=== PATIENT | female | born 1980 | race Caucasian/White ===

== ENCOUNTER 2016-08-10 14:02 | Emergency (ER) | payer BC ==
[~2016-08-10] VITALS: Ht 172.7 cm; Wt 94.9 kg
[~2016-08-10 14:02] MED LIST: BUSP1TAB46 PO; CETI10TA10 PO; CIPR-255 PO; LAMO200T38 PO; NORGTAB52 PO; RANI150T2 PO; SPIR50TA3 PO; TPM100 PO
[2016-08-10 14:04] VITALS: TEMP 37.1; Ht 172.7 cm; Wt 94.9 kg
--- NOTE | 2016-08-10 14:58 | DIAGNOSTIC IMAGING REPORT ---
RIGHT FOOT MIN 3 VIEWS ROUTINE CLINICAL HISTORY: right foot pain Right COMPARISON: None. DISCUSSION: The bones and joint spaces appear intact. There is no evidence of fracture, dislocation or bony disease. There is no evidence for soft tissue swelling. IMPRESSION: Negative study. Electronically signed by: Korey Tinajero M.D. 08/10/2016 2:57 PM Dictated Date/Time: 08/10/2016 2:56 PM
[2016-08-10] MEDS ORDERED: IBUPROFEN 600 MG TAB PO STA (15:13)
--- NOTE | 2016-08-10 15:20 | EMERGENCY ROOM VISIT NOTE ---
ED Visit Note First contact with patient: 14:12 CHIEF COMPLAINT: Foot pain HISTORY OF PRESENT ILLNESS: This 36-year-old female patient presents to the emergency department ambulatory complaining of swelling and pain in the right foot at rest and worse with weight bearing. The patient states her symptoms started a week ago and worse yesterday. The patient rates the pain as sharp and 7/10. The patient has no relief of the pain. The patient is barely able to walk. No numbness or weakness. No ankle pain. There are no lacerations of the foot. The patient is able to move all of their toes and their ankle without pain. Patient denies previous injury to this foot. REVIEW OF SYSTEMS: GENERAL: A 6 system review of systems was completed with positives and pertinent negatives in the HPI. ALLERGIES: Sulfa MEDICATIONS: See nursing notes PMH: []Bipolar, migraines, GERD SOCIAL HISTORY: The patient is employed. She does not smoke PHYSICAL EXAM: Vital Signs: Reviewed Nurse's notes, vital signs stable. GENERAL : This is a 36-year-old female, in no acute distress, but appears in pain, well- developed, well-nourished. MUSCULOSKELETAL: There is no visual deformity of the right foot. There is no erythema or ecchymosis. There is no warmth. There is tenderness and swelling over the medial aspect at the arch of the right foot. The range of motion of the foot is minimally limited secondary to pain. There is no tenderness over the plantar fascia. Dorsi flexion 4/5 and Plantar flexion 4/5. The skin is intact and there are no lacerations or puncture wounds. Dorsalis pedis pulse 2+. Capillary refill less than 2 seconds. EMERGENCY DEPARTMENT COURSE: I examined the patient. An X-ray of the right foot was reviewed by myself and radiology and reveals no fracture or dislocation. The patient was placed in a post-op shoe and instructed on the use of crutches. She was given 600 mg oral ibuprofen. She declined any stronger pain medication. She does not have any erythema, warmth, fever, lymphangitic streaking to suggest infectious process. She does not have any calf pain or palpable cord to suggest DVT. This may be an overuse injury. She should rest and elevate the leg. She should contact orthopedics to schedule a follow-up appointment for further evaluation and management. She should return with worsening symptoms. The patient was discharged home in good condition. RIGHT FOOT MIN 3 VIEWS ROUTINE CLINICAL HISTORY: right foot pain Right COMPARISON: None. DISCUSSION: The bones and joint spaces appear intact. There is no evidence of fracture, dislocation or bony disease. There is no evidence for soft tissue swelling. IMPRESSION: Negative study. Problem List Medical Problems: (1) Bipolar disorder Status: Chronic Surgical Problems: (1) Hx of cholecystectomy Status: Resolved (2) Hx of hemorrhoidectomy Status: Resolved (3) S/P nasal septoplasty Status: Resolved Current/Historical Medications Scheduled Cetirizine Hcl (Zyrtec), 10 MG PO HS Lamotrigine (Lamictal), 200 MG PO BID Norgestimate-Ethinyl Estradiol (Tri-Previfem), 1 TAB PO QAM Ranitidine HCl (Ranitidine HCl), 150 MG PO BID Spironolactone (Aldactone), 50 MG PO QAM Topiramate (Topiramate), 200 MG PO HS Allergies Coded Allergies: Sulfa Drugs (Verified Allergy, Unknown, 08/10/16) Vital Signs Date Time Temp Pulse Resp B/P Pulse Ox O2 Delivery O2 Flow Rate FiO2 08/10/16 15:51 89 20 146/83 98 08/10/16 14:04 37.1 91 18 145/105 96 Room Air Medications Administered Medications (Trade) Dose Ordered Sig/Benjamin Route Start Time Stop Time Status Last Admin Dose Admin Ibuprofen (Motrin Tab) 600 mg NOW STAT PO 08/10/16 15:13 08/10/16 15:15 DC 08/10/16 15:47 600 MG Departure Information Impression Primary Impression: Foot sprain Dispostion Home / Self-Care Condition GOOD Referrals Rica Knight M.D. (PCP) Александр Dickinson M.D. Patient Instructions ED Sprain Foot, [facility] Additional Instructions Ibuprofen 600 mg every 6-8 hours or moderate pain Ice frequently over the next 24-48 hours Wear the postop shoe when up and about with crutches with weightbearing as tolerated Contact orthopedics to schedule a follow-up appointment Return with any worsening symptoms Work Instructions Return To Work: 3 days
[2016-08-10 15:51] VITALS: BP 146/83; PULSE 89; O2SAT 98
== END 2016-08-10 15:52 | disposition home or self-care (01) ==
LOC: C.EDB 14:03 → C.EDD 15:52
DX: S93.601A Unspecified sprain of right foot, initial encounter (principal); X58.XXXA Exposure to other specified factors, initial encounter; F31.9 Bipolar disorder, unspecified; K21.9 Gastro-esophageal reflux disease without esophagitis; Z90.49 Acquired absence of other specified parts of digestive tract; Z79.899 Other long term (current) drug therapy

== ENCOUNTER 2021-03-03 14:53 | Inpatient (IN) ==
[2021-03-03] MEDS ORDERED: ONDANSETRON INJ 2 MG/ML 2 ML VIAL IV STA ×2 (16:21→17:57)
[2021-03-03] MEDS ORDERED: SODIUM CHLORIDE 0.9% 1000ML 1,000 ML IV ONE (16:21)
[2021-03-03] MEDS ORDERED: KETOROLAC 30 MG/ML VIAL IV STA (16:21)
--- NOTE | 2021-03-03 16:24 | Emergency Department Note ---
Impression & Plan Epiploic appendagitis ED Provider Note Name: TANYA TENORIO Age: 41 Sex: F Arrives Via: Walk-In Informant: Patient ED Provider: Steven Calabrese MD Chief Complaint: abdominal pain Impression: Epiploic Appendagitis Medical Decision Making: Very pleasant [facility] [employer] with history Bipolar, Gerd, IBS, Migraines arrives with acute Left lower abdominal pain no consistent with previous renal colic. She is uncomfortable though initially declines pain medications, though agreed to Toradol. With acuity and location felt CT a/p without contract for stone eval reasonable initially. Labs with mild wbc elevation. CT with diverticulitis vs appendagitis. Worsening pain while here thus IV morphine and will start abx in case this is diverticulitis. Continued worsening of pain and thus dilaudid given and still quite uncomfortable. With continued pain felt that repeat imaging but with IV contrast indicated. CT confirms this appears to be appendagitis. There is mild appendix dilation, though no RLQ TTP thus I do not feel this is appendicitis. Given persistent pain will bring in for pain control and gen surg consulted who agree with monitoring, and advise continued abx management. Triage/Nursing Notes reviewed by Me Differentials:Appendicitis, ovarian cyst, ovarian torsion, ectopic , TOA, PID, infections, diverticulitis, UTI, obstruction, mesenteric ischemia, aortic pathology, inflammatory bowel disease, renal colic, PUD, pancreatitis, biliary pathology, hernia, volvulus, constipation, as well as other pathologies. Vital Signs: reviewed and remarkable for no significant abnormalities Interventions: See Below Labs:Reviewed and remarkable for mild wbc elevation Imaging:See Below Consults:Arcenio Lugo PA-C and Dr Wilkins of Gen Surg Dr Rose Mary Cox Hospitalist Plan: Disposition:Hospitalization Condition: Good History of Present Illness:41 yr old female arrives for evaluation of left abdominal pain. Notes she awoke this morning with left abdominal pain. Stabbing and comes in waves. Associated nausea and lack of appetite. No vomiting, fevers, chills, blood in stool, urinary symptoms, leg swelling, rashes, back pain, chest pain, sob, syncope, nor other symptoms. No history of similar though does have renal colic history. No trauma, falls, injuries. no medications prior to arrival. nothing makes better, movement makes worse. ROS: See above HPI for pertinent positives & negatives. A total of 10 systems reviewed and were otherwise negative. Past Medical History:See Below Past Surgical History:See Below Family History:See Below Social History:See Below Home Medications:See Below Allergies:[place] Vitals:Blood Pressure: 140/76, Pulse 87, RR 18, T 36.6C, O2 98% on RA Physical Exam: GENERAL: Patient is very uncomfortable appearing and in moderate distress. EYES: No scleral icterus, unremarkable pupils. ENT: Mucous membranes moist, no nasal congestion. NECK: No masses appreciated, nomeningismus, trachea is midline. RESPIRATORY: No dyspnea. Clear to auscultation and equal bilaterally. No wheeze, no rhonchi. CARDIOVASCULAR: Regular rate and rhythm.No murmurs, rubs, gallops appreciated. GASTROINTESTINAL: TTP left lower quadrant. Otherwise abdomen soft, non-tender, no peritonitis.Bowel sounds positive.No masses appreciated. BACK: No midline tenderness, no CVA tenderness EXTREMITIES: Normal motion all extremities, no cyanosis, no edema. NEUROLOGIC: Alert and oriented, no acute motor or sensory deficits, no focal weakness, cranial nerves grossly intact. SKIN: No rash, no jaundice, no diaphoresis. PSYCH: Appropriate GCS: 15 ED Course: Times/Reassessments: continued pain though manageable with iv narcotics Steven Calabrese MD Past Med/Surg History Medical History Bipolar disorder GERD (gastroesophageal reflux disease) Headache, migraine IBS (irritable bowel syndrome) Surgical History Hx of cholecystectomy Hx of hemorrhoidectomy Family History Other Diabetes Heart disease Hypertension Social History Smoking Status: Never smoker Smoking End Date: 2009; Second Hand Exposure: No; Do You Dip or Chew Tobacco: No; Tobacco Cessation Education Requested by Patient: No Hx Alcohol Use: No Hx Substance Use: No Preferred Language: Yoruba Communication Ability: Effective 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 Offbearer Required: No Beliefs That Will Affect Care: None Current Living Situation: Alone Other Information That Helps Us Care for You: No Feels Safe at Home: Yes Safety Concerns: Feels Safe At This Time Assistive Devices: Glasses Allergies Allergies Allergy/AdvReac Type Severity Reaction Status Date / Time Sulfa (Sulfonamide Allergy Unknown Hives/Rash Verified 03/03/21 15:53 Antibiotics) Home Meds Home Medications Medication Instructions Recorded Confirmed cetirizine 10 mg tablet 10 mg PO HS PRN 07/03/19 03/03/21 desogestrel 0.15 mg-ethinyl 1 tab PO DAILY 07/03/19 03/03/21 estradiol 0.03 mg tablet (Apri) lamotrigine 200 mg tablet 200 mg PO BID 07/03/19 03/03/21 topiramate 200 mg tablet 200 mg PO HS 07/03/19 03/03/21 fluoxetine 10 mg capsule 10 mg PO DAILY 03/03/21 03/03/21 fluoxetine 20 mg capsule 20 mg PO DAILY 03/03/21 03/03/21 galcanezumab-gnlm 120 mg/mL 120 mg SUBCUT MONTHLY 03/03/21 03/03/21 subcutaneous pen injector (Emgality Pen) zolmitriptan 5 mg tablet 5 mg PO UD PRN MDD 2 tabs 03/03/21 03/03/21 Results & Data (ED) Vital Signs Vital Signs - 24 hr 03/03/21 15:01 03/03/21 17:31 03/03/21 18:00 Temperature 36.6 C Temperature Source Temporal Artery Scan Pulse Rate 87 75 67 Pulse Rate from SpO2 Sensor 74 66 Respiratory Rate 18 18 13 Respiratory Effort / Characteristics Non-Labored Respiratory Depth Normal Blood Pressure 140/76 156/126 H 159/104 H Blood Pressure Mean 97 136 122 Pulse Oximetry 98 100 99 Oxygen Delivery Method Room Air Room Air Sepsis Recent Fever Within 48 Hours No Sepsis New/Unexplained Change in Mental Status No Sepsis Action Taken by Nursing No Action Required 03/03/21 18:30 03/03/21 19:44 03/03/21 20:00 Temperature Temperature Source Pulse Rate 65 76 Pulse Rate from SpO2 Sensor 65 77 76 Respiratory Rate 11 L 17 Respiratory Effort / Characteristics Respiratory Depth Blood Pressure 169/121 H 135/91 Blood Pressure Mean 137 105 Pulse Oximetry 100 99 99 Oxygen Delivery Method Room Air Room Air Sepsis Recent Fever Within 48 Hours Sepsis New/Unexplained Change in Mental Status Sepsis Action Taken by Nursing 03/03/21 20:30 03/03/21 21:00 03/03/21 21:30 Temperature Temperature Source Pulse Rate 80 66 66 Pulse Rate from SpO2 Sensor 78 66 66 Respiratory Rate 14 16 14 Respiratory Effort / Characteristics Respiratory Depth Blood Pressure 141/84 H 124/81 139/80 Blood Pressure Mean 103 95 99 Pulse Oximetry 98 97 98 Oxygen Delivery Method Sepsis Recent Fever Within 48 Hours Sepsis New/Unexplained Change in Mental Status Sepsis Action Taken by Nursing Laboratory Data Result diagrams: 03/04/21 05:40 03/04/21 05:40 Lab Results 03/03/21 03/03/21 03/03/21 Range/Units 17:20 17:30 19:28 WBC 12.21 H (4.8-10.8) K/uL RBC 4.59 (4.2-5.4) M/uL Hgb 12.9 (12.0-16.0) g/dL Hct 39.5 (37-47) % MCV 86.1 (80-100) fL MCH 28.1 (25-34) pg MCHC 32.7 (32-36) g/dL RDW Std Deviation 48.0 H (36.4-46.3) fL RDW Coeff of Daniel 15.5 H (11.5-14.5) % Plt Count 419 H (130-400) K/uL MPV 10.1 (7.4-10.4) fL Immature Gran % (Auto) 0.2 % Neut % (Auto) 68.6 % Lymph % (Auto) 24.5 % [place] % (Auto) 5.2 % Eos % (Auto) 1.3 % Baso % (Auto) 0.2 % Neut # (Auto) 8.38 H (1.4-6.5) K/uL Lymph # (Auto) 2.99 (1.2-3.4) K/uL Collier # (Auto) 0.63 H (0.11-0.59) K/uL Eos # (Auto) 0.16 (0-0.5) K/uL Baso # (Auto) 0.03 (0-0.2) K/uL Immature Gran # (Auto) 0.02 (0.00-0.02) K/uL Sodium 140 (136-145) mmol/L Potassium 3.9 (3.5-5.1) mmol/L Chloride 111 H (98-107) mmol/L Carbon Dioxide 24 (21-32) mmol/L Anion Gap 5.0 (3-11) BUN 6 L (7-18) mg/dl Creatinine 0.86 (0.6-1.2) mg/dl Est Cr Clr Drug Dosing 110.2 ml/min Est GFR ( Amer) 97.3 ml/min Est GFR (Non-Af Amer) 83.9 ml/min BUN/Creatinine Ratio 6.9 L (10-20) Glucose 81 (70-99) mg/dl Calcium 9.1 (8.5-10.1) mg/dl Total Bilirubin 0.3 (0.2-1) mg/dl Direct Bilirubin < 0.1 (0-0.2) mg/dl AST 9 L (15-37) U/L ALT 15 (12-78) U/L Alkaline Phosphatase 102 (45-117) U/L Total Protein 7.4 (6.4-8.2) gm/dl Albumin 3.5 (3.4-5.0) gm/dl Lipase 103 (73-393) U/L Urine Color Yellow Urine Appearance Turbid A (Clear) Urine pH 7.5 (4.5-7.5) Ur Specific [place] 1.012 (1.000-1.030) Urine Protein Negative (Negative) Urine Glucose (UA) Negative (Negative) Urine Ketones Negative (Negative) Urine Blood Negative (Negative) Urine Nitrite Negative (Negative) Urine Bilirubin Negative (Negative) Urine Urobilinogen Negative (Negative) Ur Leukocyte Esterase 1+ H (Negative) Urine WBC (Auto) 5-10 H (0-5) /hpf Urine RBC (Auto) 0-4 (0-4) /hpf U Hyaline Cast (Auto) 1-5 (0-5) /lpf U Epithel Cells (Auto) >30 H (0-5) /lpf Urine Bacteria (Auto) Negative (Negative) Amorphous Sediment Present A (None Prsent) Urine Mucus Present A (None Prsent) Urine Test (Negative) COVID-19 Eval Order SARS-CoV-2 (PCR) (Negative) 03/03/21 03/03/21 03/03/21 Range/Units 19:28 20:14 20:14 WBC (4.8-10.8) K/uL RBC (4.2-5.4) M/uL Hgb (12.0-16.0) g/dL Hct (37-47) % MCV (80-100) fL MCH (25-34) pg MCHC (32-36) g/dL RDW Std Deviation (36.4-46.3) fL RDW Coeff of Daniel (11.5-14.5) % Plt Count (130-400) K/uL MPV (7.4-10.4) fL Immature Gran % (Auto) % Neut % (Auto) % Lymph % (Auto) % Collier % (Auto) % Eos % (Auto) % Baso % (Auto) % Neut # (Auto) (1.4-6.5) K/uL Lymph # (Auto) (1.2-3.4) K/uL [place]lier # (Auto) (0.11-0.59) K/uL Eos # (Auto) (0-0.5) K/uL Baso # (Auto) (0-0.2) K/uL Immature Gran # (Auto) (0.00-0.02) K/uL Sodium (136-145) mmol/L Potassium (3.5-5.1) mmol/L Chloride (98-107) mmol/L Carbon Dioxide (21-32) mmol/L Anion Gap (3-11) BUN (7-18) mg/dl Creatinine (0.6-1.2) mg/dl Est Cr Clr Drug Dosing ml/min Est GFR ( Amer) ml/min Est GFR (Non-Af Amer) ml/min BUN/Creatinine Ratio (10-20) Glucose (70-99) mg/dl Calcium (8.5-10.1) mg/dl Total Bilirubin (0.2-1) mg/dl Direct Bilirubin (0-0.2) mg/dl AST (15-37) U/L ALT (12-78) U/L Alkaline Phosphatase (45-117) U/L Total Protein (6.4-8.2) gm/dl Albumin (3.4-5.0) gm/dl Lipase (73-393) U/L Urine Color Urine Appearance (Clear) Urine pH (4.5-7.5) Ur Specific [place] (1.000-1.030) Urine Protein (Negative) Urine Glucose (UA) (Negative) Urine Ketones (Negative) Urine Blood (Negative) Urine Nitrite (Negative) Urine Bilirubin (Negative) Urine Urobilinogen (Negative) Ur Leukocyte Esterase (Negative) Urine WBC (Auto) (0-5) /hpf Urine RBC (Auto) (0-4) /hpf U Hyaline Cast (Auto) (0-5) /lpf U Epithel Cells (Auto) (0-5) /lpf Urine Bacteria (Auto) (Negative) Amorphous Sediment (None Prsent) Urine Mucus (None Prsent) Urine Test Negative (Negative) COVID-19 Eval Order Covid19 at [facility] SARS-CoV-2 (PCR) NEGATIVE (Negative) Administered Medications Enoxaparin Sodium (Enoxaparin Inj 40 Mg/0.4 Ml Syr) 40 mg SQ QAM SAMIA Stop: 04/03/21 08:59 Last Admin: 03/04/21 08:13 Dose: 40 mg Documented by: [id number] Fluoxetine HCl (Fluoxetine Hcl 10 Mg Cap) 30 mg PO DAILY SAMIA Stop: 04/03/21 08:59 Last Admin: 03/04/21 08:13 Dose: 30 mg Documented by: [id number] Lactated Ringer's (Lr) 1,000 mls @ 80 mls/hr IV .[id number] ONE Stop: 03/04/21 12:14 Last Admin: 03/03/21 23:54 Dose: 80 mls/hr Documented by: [id number] Cefoxitin Sodium 1,000 mg/ (Dextrose) 60 mls @ 120 mls/hr IV Q8H SMAIA; Protocol Stop: 03/14/21 00:00 Last Infusion: 03/04/21 08:43 Dose: 0 mls/hr Documented by: [id number] Admin: 03/04/21 08:12 Dose: 120 mls/hr Documented by: [id number] Infusion: 03/04/21 01:36 Dose: 0 mls/hr Documented by: [id number] Admin: 03/04/21 00:32 Dose: 120 mls/hr Documented by: [id number] Lamotrigine (Lamotrigine 100 Mg Tab) 200 mg PO BID SAMIA Stop: 04/02/21 23:44 Last Admin: 03/04/21 08:13 Dose: 200 mg Documented by: [id number] Admin: 03/04/21 00:31 Dose: 200 mg Documented by: [id number] Miscellaneous (* Control*Order Awaiting Action) 1 ea N/A QS SAMIA Stop: 04/03/21 00:00 Last Admin: 03/04/21 08:09 Dose: Not Given Documented by: [id number] Admin: 03/04/21 00:37 Dose: Not Given Documented by: [id number] Morphine Sulfate (Morphine Sulfate 4 Mg/Ml 1 Ml Carp\Vial) 3 mg IV Q3H PRN PRN Reason: Pain Stop: 03/18/21 08:36 Last Admin: 03/04/21 08:48 Dose: 3 mg Documented by: [id number] Topiramate (Topiramate 100 Mg Tab) 200 mg PO HS SAMIA Stop: 04/02/21 23:44 Last Admin: 03/04/21 00:32 Dose: 200 mg Documented by: [id number] Discontinued Medications Hydromorphone HCl (Hydromorphone Inj 1 Mg/Ml Syringe) 1 mg IV NOW STA Stop: 03/03/21 19:15 Last Admin: 03/03/21 19:25 Dose: 1 mg Documented by: [id number] Hydromorphone HCl (Hydromorphone Inj 1 Mg/Ml Syringe) 1 mg IV NOW STA Stop: 03/03/21 20:07 Last Admin: 03/03/21 20:21 Dose: 1 mg Documented by: [id number] Sodium Chloride (Nss 1000ml) 1,000 mls @ 999 mls/hr IV .Q1H1M ONE Stop: 03/03/21 17:21 Last Infusion: 03/03/21 18:23 Dose: 0 mls/hr Documented by: [id number] Admin: 03/03/21 17:26 Dose: 999 mls/hr Documented by: [id number] Cefoxitin Sodium (Mefoxin) 2,000 mg in 60 mls @ 100 mls/hr IV NOW STA Stop: 03/03/21 19:29 Last Infusion: 03/03/21 20:21 Dose: 0 mls/hr Documented by: [id number] Admin: 03/03/21 19:41 Dose: 100 mls/hr Documented by: [id number] Ioversol (Optiray 320 100ml) 97 ml IV ONCE ONE Stop: 03/03/21 19:35 Last Admin: 03/03/21 19:35 Dose: 97 ml Documented by: [id number] Ketorolac Tromethamine (Ketorolac 30 Mg/Ml Vial) 30 mg IV NOW STA Stop: 03/03/21 16:22 Last Admin: 03/03/21 17:26 Dose: 30 mg Documented by: [id number] Ketorolac Tromethamine (Ketorolac Tromethamine 15 Mg/Ml Vial) 15 mg IV Q6H PRN PRN Reason: Pain Stop: 03/08/21 22:02 Last Admin: 03/04/21 08:07 Dose: 15 mg Documented by: [id number] Admin: 03/03/21 23:03 Dose: 15 mg Documented by: [id number] Ketorolac Tromethamine (Ketorolac Tromethamine 15 Mg/Ml Vial) 15 mg IV NOW ONE Stop: 03/03/21 23:47 Last Admin: 03/04/21 00:32 Dose: 15 mg Documented by: [id number] Morphine Sulfate (Morphine Sulfate 10 Mg/Ml Carp/Vial) 8 mg IV NOW STA Stop: 03/03/21 17:58 Last Admin: 03/03/21 18:43 Dose: 8 mg Documented by: [id number] Ondansetron HCl (Ondansetron Inj 2 Mg/Ml 2 Ml Vial) 4 mg IV NOW STA Stop: 03/03/21 16:22 Last Admin: 03/03/21 17:26 Dose: 4 mg Documented by: [id number] Ondansetron HCl (Ondansetron Inj 2 Mg/Ml 2 Ml Vial) 4 mg IV NOW STA Stop: 03/03/21 17:58 Last Admin: 03/03/21 18:48 Dose: 4 mg Documented by: [id number] Discharge Plan Visit Data Chief Complaint: Abdominal Pain Stated Complaint: ABDOMINAL PAIN, VOMITING ED Provider: Steven Calabrese Discharge Problem: Epiploic appendagitis Patient Disposition: Admitted As Inpatient Discharge Instructions Interventions: ED Discharge Assessment Last Done: 03/03/21 23:11
--- NOTE | 2021-03-03 16:57 | CT Scan Report ---
CT SCAN OF THE ABDOMEN AND PELVIS WITHOUT CONTRAST CLINICAL HISTORY: left flank pain COMPARISON STUDY: March 29, 2013 TECHNIQUE: CT scan of the abdomen and pelvis was performed from the lung bases to the proximal femurs . Images are reviewed in the axial, sagittal, and coronal planes. IV contrast was not administered fo r this examination. A dose lowering technique was utilized adhering to the principles of ALARA. CT DOSE: 878.17 mGy.cm FINDINGS: Lower chest: No acute abnormalities. Liver: The unenhanced liver is normal in size, contour, and attenuation. There is no intrahepatic margie iary ductal dilatation. Gallbladder: Is surgically absent. Spleen: Is slightly prominent 13.8 cm in length. Pancreas: Fatty infiltration of pancreatic body and head as well as uncinate process appear more prom inent since prior study in 2012. Adrenal glands: Unremarkable. Kidneys: The unenhanced kidneys are normal in size without hydronephrosis. There is no contour deform ing renal mass lesion. Punctate nonobstructive nephrolithiasis is seen on the left. Right and left ur eters are nondilated. Punctate calculus is seen within lower pelvic region, in close proximity to the anatomical region of the left ureter vesicular junction Bowel: The small bowel and colon are normal in course and caliber. Cecum is seen within lower pelvic region. Appendix shows normal morphology and gas filled. Focal area of fat stranding is seen within left lower quadrant (3/360) adjacent to the collapsed loop of descending colon. Peritoneum: There is no intraperitoneal free air or abdominal ascites. Vasculature: The abdominal aorta is normal in course and caliber. Adenopathy: None. Pelvic viscera: Urinary bladder is partially decompressed which limits evaluation. Possibly cystic ap pearance of the right adnexa which could represent physiologic follicle or cyst. Skeletal structures: Minimal degenerative changes of the spine. IMPRESSION: 1. Questionable area of fat stranding is seen within left lower quadrant, adjacent to the loop of no ndilated bowel, differential diagnosis could include epiploic appendigitis or diverticulitis, however no definite large diverticuli are seen. Follow-up evaluation is per clinical protocol. 2. Normal appendix. Nondilated loops of bowel. 3. Nonobstructive nephrolithiasis on the left. 4. Cystic appearance of the right adnexa, could represent physiologic follicle or cyst. 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 5. Status post cholecystectomy. 6. The rest of findings as above. ACT 112: Negative or not required by law. The above report was generated using voice recognition software. It may contain grammatical, syntax o r spelling errors. Electronically signed by: Courtney Arshad DO 03/03/2021 4:56 PM
[2021-03-03 17:47] LABS: Basophils # (auto) 0.03 K/uL (0-0.2); Basophils % (auto) 0.2 %; Eosinophils # (auto) 0.16 K/uL (0-0.5); Eosinophils % (auto) 1.3 %; Hematocrit (blood only) 39.5 % (37-47); Hemoglobin 12.9 g/dL (12.0-16.0); Immature Granulocytes # (auto) 0.02 K/uL (0.00-0.02); Immature Granulocytes % (auto) 0.2 %; Lymphocytes # (auto) 2.99 K/uL (1.2-3.4); Lymphocytes % (auto) 24.5 %; Mean Corpuscular Hemoglobin 28.1 pg (25-34); Mean Corpuscular Hgb Conc 32.7 g/dL (32-36); Mean Corpuscular Volume 86.1 fL (80-100); Mean Platelet Volume 10.1 fL (7.4-10.4); Monocytes # (auto) 0.63 K/uL (0.11-0.59); Monocytes % (auto) 5.2 %; Neutrophils # (auto) 8.38 K/uL (1.4-6.5); Neutrophils % (auto) 68.6 %; Platelet Count 419 K/uL (130-400); RDW Coefficient of Variation 15.5 % (11.5-14.5); Red Blood Count 4.59 M/uL (4.2-5.4); White Blood Count 12.21 K/uL (4.8-10.8)
[2021-03-03] MEDS ORDERED: MoRPHine SULFATE 10 MG/ML CARP/VIAL IV STA (17:57)
[2021-03-03 18:05] LABS: Alanine Aminotransferase 15 U/L (12-78); Albumin Level 3.5 gm/dl (3.4-5.0); Aspartate Aminotransferase 9 U/L (15-37); BUN Creatinine Ratio 6.9 (10-20); Bilirubin Direct < 0.1 mg/dl (0-0.2); Blood Urea Nitrogen 6 mg/dl (7-18); Calcium 9.1 mg/dl (8.5-10.1); Carbon Dioxide 24 mmol/L (21-32); Chloride 111 mmol/L (98-107); Creatinine Clr Calc Pharmacy 110.2 ml/min; Est GFR (African American) 97.3 ml/min; Est GFR (Non-African American) 83.9 ml/min; Glucose 81 mg/dl (70-99); Lipase 103 U/L (73-393); Potassium 3.9 mmol/L (3.5-5.1); Sodium 140 mmol/L (136-145)
[2021-03-03 18:07] LABS: Alkaline Phosphatase 102 U/L (45-117); Bilirubin,Total 0.3 mg/dl (0.2-1); Total Protein 7.4 gm/dl (6.4-8.2)
[2021-03-03] MEDS ORDERED: cefOXitin 2,000 MG/60 ML BAG IV STA (18:54)
[2021-03-03] MEDS ORDERED: HYDROmorphone INJ 1 MG/ML SYRINGE IV STA ×2 (19:14→20:06)
[2021-03-03] MEDS ORDERED: OPTIRAY 320 100ml IV ONE (19:34)
[2021-03-03 19:47] LABS: Pregnancy Test, Urine Negative (Negative)
[2021-03-03 19:50] LABS: Appearance Urine Turbid (Clear); Bacteria Urine Automated Negative (Negative); Bilirubin Urine Negative (Negative); Blood Urine Negative (Negative); Color Urine Yellow; Epithelial Cell Urine Auto >30 /lpf (0-5); Glucose Urine UA Negative (Negative); Ketones Urine Negative (Negative); Leukocyte Esterase Urine 1+ (Negative); Nitrite Urine Negative (Negative); Protein Urine Negative (Negative); RBC Urine Automated 0-4 /hpf (0-4); Specific Gravity Urine 1.012 (1.000-1.030); Urobilinogen Urine Negative (Negative); pH Urine 7.5 (4.5-7.5)
--- NOTE | 2021-03-03 19:57 | CT Scan Report ---
ABDOMEN AND PELVIS CT WITH IV CONTRAST CT DOSE: 899.37 mGy.cm HISTORY: Acute left lower quadrant abdominal pain persistently worsening LLQ pain despite mtlp meds TECHNIQUE: Multiaxial CT images of the abdomen and pelvis were performed following the IV administrat ion of 97 cc of Optiray, A dose lowering technique was utilized adhering to the principles of ALARA. COMPARISON STUDY: CT abdomen and pelvis of same day at 4:42 PM FINDINGS: Imaged inferior cardiac chambers are unremarkable. Clear lung bases. No pneumatosis or pneu moperitoneum. Mild splenic leak, 14.3 cm. Unremarkable pancreas, adrenal glands and liver. Cholecyste ctomy. Symmetric enhancement of the kidneys. There are a few bilateral renal cysts measuring up to 1. 8 cm on the right. No hydronephrosis. Partially decompressed urinary bladder. Aorta and IVC are unrem arkable. There is no adenopathy. Tiny hiatal hernia. No bowel obstruction. There is acute epiploic appendagitis within the abdominal l eft lower quadrant on image 356 series 3 involving the distal aspect of the descending colon which wa s also described on comparison. Fluid-filled cecum with air and fluid-filled noninflamed appendix [place] suring up to 7 mm. Unremarkable soft tissues. There is no acute fracture. IMPRESSION: 1. Acute epiploic appendagitis involves the distal aspect of the descending colon. 2. No bowel obstruction or bowel wall thickening. 3. Air and fluid-filled noninflamed appearing mildly dilated appendix measures up to 7 mm. Acute appe ndicitis is considered unlikely. 4. Cholecystectomy. 5. Mild hepatomegaly. ACT 112: Negative or not required by law. The above report was generated using voice recognition software. It may contain grammatical, syntax o r spelling errors. Electronically signed by: Mariano Kelsey M.D. 03/03/2021 7:56 PM
[2021-03-03 20:01] LABS: Amorphous Sediment Urine Present (None Prsent); Mucus Urine Present (None Prsent)
--- NOTE | 2021-03-03 20:39 | Surgery Consultation ---
Date of Consultation March 03, 2021 Assessment & Plan (1) Epiploic appendagitis: Patient has been admitted to the hospital on the hospitalist service with surgical consultation. We recommend proceeding as follows: At the present time pain control measures should be implemented. If adequate pain control cannot be achieved surgical intervention will be revisited but that is not required at this time As the patient does have an elevated white blood cell count we recommend utilizing antibiotics while hospitalized. We will reassess the patient at a later time interval and see how her pain control is. As stated above the patient is unable to achieve adequate pain control surgical options will be revisited. Supervising Physician Co-Signing Physician Notes As per Arcenio Lugo physician communication assistant Patient has tenderness and extend from the groin area up towards the left flank area not pinpoint CAT scan was reviewed the findings discussed with the patient At this point conservative therapy with analgesics antibiotics and reevaluate the situation if she progresses clinically Most of the time the acute inflammation of appendiceal epiploic can be treated nonsurgically Patient to be admitted by the medical service we will follow History of Present Illness Reason for Consultation: Abdominal pain History of Present Illness This is a 41-year-old female who presented to the emergency department secondary to abdominal pain. Patient says she was in her usual state of health yesterday when she woke up this morning shortly after waking up she had left lower quadrant abdominal pain. She said that she does not note any modifying factors and the pain did not radiate. She did try to eat some breakfast but she had a poor appetite because of the pain. With the pain she had nausea without vomiting. She denies any fevers, shakes, chills. She denies any change in her bowel habits and notes that they have been working normally. She denies any dysuria or urinary frequency. She says she has had prior abdominal surgeries in the form of a cholecystectomy as well as an umbilical herniorrhaphy. In the emergency department patient had labs and imaging which I dependently reviewed. Her white blood cell count was noted to be elevated at 12.2. Her hemoglobin and hematocrit within normal range. Platelet count was elevated at 419,000. Chemistry profile showed sodium and potassium were both normal. Creatinine was not elevated. The patient did have no known elevations of her LFTs or lipase. Urinalysis did show turbid urine and 1+ leukocyte esterase. There were 5-10 white blood cells per high-power field but no bacteria was noted. A urine test was negative.Patient had an initial CT scan without utilizing IV contrast or patient was noted to see some questionable fat stranding in the left lower quadrant that was felt to potentially represent epiploic appendagitis. Her appendix was noted to be normal on the study. She subsequently had a CAT scan utilizing IV contrast that again showed epiploic appendagitis in the left side of the abdomen near the descending colon. She was noted to have a noninflamed appendix that was measured approximately 7 mm on the scan. At the time of my interview the patient was in no distress but she did seem somewhat uncomfortable with mild the pain in her left lower quadrant. Allergies Allergy/AdvReac Type Severity Reaction Status Date / Time Sulfa (Sulfonamide Allergy Unknown Hives/Rash Verified 03/03/21 15:53 Antibiotics) Home Medications Medication Instructions Recorded Confirmed Type cetirizine 10 mg tablet 10 mg PO HS PRN 07/03/19 03/03/21 History desogestrel 0.15 mg-ethinyl 1 tab PO DAILY 07/03/19 03/03/21 History estradiol 0.03 mg tablet (Apri) lamotrigine 200 mg tablet 200 mg PO BID 07/03/19 03/03/21 History topiramate 200 mg tablet 200 mg PO HS 07/03/19 03/03/21 History fluoxetine 10 mg capsule 10 mg PO DAILY 03/03/21 03/03/21 History fluoxetine 20 mg capsule 20 mg PO DAILY 03/03/21 03/03/21 History galcanezumab-gnlm 120 mg/mL 120 mg SUBCUT MONTHLY 03/03/21 03/03/21 History subcutaneous pen injector (Emgality Pen) zolmitriptan 5 mg tablet 5 mg PO UD PRN MDD 2 tabs 03/03/21 03/03/21 History Patient History Medical History Bipolar disorder GERD (gastroesophageal reflux disease) Headache, migraine IBS (irritable bowel syndrome) Surgical History Hx of cholecystectomy Hx of hemorrhoidectomy Family History Other Diabetes Heart disease Hypertension Social History Smoking Status: Former smoker Smoking End Date: 2009; Feels Safe at Home: Yes Review of Systems Constitutional: no fever and no chills Eyes: no diplopia Ear, Nose, Mouth, Throat: no ear pain and no sore throat Respiratory: no cough and no dyspnea Cardiovascular: no chest pain Gastrointestinal: + abdominal pain and + nausea; no vomiting and no change in bowel habits Genitourinary: no dysuria Musculoskeletal: no back pain Integumentary: no rash Neurologic: no localized weakness Physical Exam Constitutional: well developed and well nourished; no acute distress Eyes: Wears glasses ENMT: Ears: no hearing impairment Mouth: no oropharynx abnormality Neck: trachea midline Respiratory: normal respiratory effort, lungs clear to auscultation Cardiovascular: Rate/Rhythm: regular rate and regular rhythm Gastrointestinal (Abdomen): Abdomen is soft and nondistended with positive bowel sounds. There is no rebound tenderness or guarding. There is no right lower quadrant pain with palpation. The patient did have pain with palpation in the left lower quadrant. I do not appreciate any hernias on exam. Musculoskeletal: No gross orthopedic abnormalities. No calf tenderness Skin: no rashes, warm and dry Neurologic: moves all extremities Psychiatric: A+Ox3, euthymic affect Results & Data ([facility]) Vital Signs (Past 12 Hours) Vital Signs Temp Pulse Resp BP Pulse Ox 03/03/21 20:00 76 17 135/91 99 03/03/21 19:44 99 03/03/21 18:30 65 11 L 169/121 H 100 03/03/21 18:00 67 13 159/104 H 99 03/03/21 17:31 75 18 156/126 H 100 03/03/21 15:01 36.6 C 87 18 140/76 98 PG Care Time/CCT Total # of Minutes Spent Total Time Spent with Patient: Total time spent is greater than 50% in coordination of care (as documented) at patient's floor/unit and/or counseling patient: Coding Level of Care Code 08306 Inpt Consult Level 5 Diagnoses Epiploic appendagitis K63.89
--- NOTE | 2021-03-03 20:43 | History & Physical Report ---
Date of Service March 03, 2021 Assessment & Plan (1) Epiploic appendagitis: Plan: This is a 41yo F with PMH of migraine headaches, bipolar disorder, GERD and IBS who presents with abdominal pain she first noticed upon waking this morning. Vital signs stable, leukocytosis 12.21, LFTs wnl, urine unremarkable, covid pcr pending CT abd/pelvis with 1. Acute epiploic appendagitis involves the distal aspect of the descending colon. 2. No bowel obstruction or bowel wall thickening. 3. Air and fluid-filled noninflamed appearing mildly dilated appendix measures up to 7 mm. Acute appendicitis is considered unlikely. Surgery evaluated patient in ED - recommend pain control, empiric abx. If pain persists, will revisit surgical options (2) Headache, migraine: Plan: Continue Topamax. Receives monthly Emgality injections, zolmitriptan PRN PCP: JOHNATHAN Diaz Patient seen in collaboration with Dr. Bazzi. Please see addendum. History of Present Illness Chief Complaint: abdominal pain Primary Care Provider: JOHNATHAN Watson This is a 41yo F with PMH of migraine headaches, bipolar disorder, GERD and IBS who presents with abdominal pain she first noticed upon waking this morning. Pain is in her left lower quadrant and she describes it as constant and throbbing. Pain is exacerbated with movement. Endorses associated nausea but no vomiting. Poor appetite today but able to tolerate fluids. Denies fever, chills, lightheadedness, headache, chest pain, shortness of breath, dysuria or diarrhea. Ongoing issues with constipation due to IBS and also felt to be side effect of some new medications. Surgical history includes cholecystectomy, hernia repair. Allergies Allergy/AdvReac Type Severity Reaction Status Date / Time Sulfa (Sulfonamide Allergy Unknown Hives/Rash Verified 03/03/21 15:53 Antibiotics) Home Medications Medication Instructions Recorded Confirmed Type cetirizine 10 mg tablet 10 mg PO HS PRN 07/03/19 03/03/21 History desogestrel 0.15 mg-ethinyl 1 tab PO DAILY 07/03/19 03/03/21 History estradiol 0.03 mg tablet (Apri) lamotrigine 200 mg tablet 200 mg PO BID 07/03/19 03/03/21 History topiramate 200 mg tablet 200 mg PO HS 07/03/19 03/03/21 History fluoxetine 10 mg capsule 10 mg PO DAILY 03/03/21 03/03/21 History fluoxetine 20 mg capsule 20 mg PO DAILY 03/03/21 03/03/21 History galcanezumab-gnlm 120 mg/mL 120 mg SUBCUT MONTHLY 03/03/21 03/03/21 History subcutaneous pen injector (Emgality Pen) zolmitriptan 5 mg tablet 5 mg PO UD PRN MDD 2 tabs 03/03/21 03/03/21 History Past Med/Surg History Medical History Bipolar disorder GERD (gastroesophageal reflux disease) Headache, migraine IBS (irritable bowel syndrome) Surgical History Hx of cholecystectomy Hx of hemorrhoidectomy Family History Other Diabetes Heart disease Hypertension Social History Smoking Status: Never smoker Smoking End Date: 2009; Second Hand Exposure: No; Do You Dip or Chew Tobacco: No; Tobacco Cessation Education Requested by Patient: No Hx Alcohol Use: No Hx Substance Use: No Preferred Language: Turkish Communication Ability: Effective Seater Grinder Required: No Beliefs That Will Affect Care: None Current Living Situation: Alone Other Information That Helps Us Care for You: No Feels Safe at Home: Yes Safety Concerns: Feels Safe At This Time Assistive Devices: Glasses Review of Systems Review of Systems: At least ten systems reviewed and negative except as noted in the HPI. Physical Exam Physical Exam: General Appearance: vitals as above, NAD, sitting up in bed, appears uncomfortable 2/2 pain, conversing without issue Head: normocephalic, atraumatic Eyes: normal inspection, PERRL, conjunctivae normal, anicteric sclerae ENT: external ear and nose normal, oropharynx normal Neck: normal visual inspection, trachea midline, no thyromegaly Respiratory: normal respiratory effort, lungs clear to auscultation, no wheeze, rales, rhonchi. No accessory muscle use Cardiovascular: regular rate, rhythm, no murmur, normal peripheral pulses, no BLE edema. Vessels: no JVD Chest: normal inspection of chest Abdomen/GI: normal bowel sounds, soft, TTP in LLQ, no guarding, no hepatosplenomegaly Extremities/Musculoskeletal: no cyanosis or clubbing, extremities motor strength 5/5 Neurologic: PERRL, EOMI, accommodation nl, no face palsy, no dysarthria, CN's II-XI intact bilaterally and moves all extremities Psychiatric: A+Ox3, euthymic affect Skin: no rashes, normal color, warm/dry Results & Data Results & Data ([facility]) Vital Signs (Past 12 Hours) Vital Signs Temp Pulse Resp BP Pulse Ox 03/03/21 20:00 76 17 135/91 99 03/03/21 19:44 99 03/03/21 18:30 65 11 L 169/121 H 100 03/03/21 18:00 67 13 159/104 H 99 03/03/21 17:31 75 18 156/126 H 100 03/03/21 15:01 36.6 C 87 18 140/76 98 Laboratory Results Short CBC 03/03/21 Range/Units 17:30 WBC 12.21 H (4.8-10.8) K/uL Hgb 12.9 (12.0-16.0) g/dL Hct 39.5 (37-47) % Plt Count 419 H (130-400) K/uL BMP 03/03/21 17:20 Sodium 140 Potassium 3.9 Chloride 111 H Carbon Dioxide 24 BUN 6 L Creatinine 0.86 Glucose 81 Calcium 9.1 Liver Function 03/03/21 Range/Units 17:20 Total Bilirubin 0.3 (0.2-1) mg/dl Direct Bilirubin < 0.1 (0-0.2) mg/dl AST 9 L (15-37) U/L ALT 15 (12-78) U/L Alkaline Phosphatase 102 (45-117) U/L Albumin 3.5 (3.4-5.0) gm/dl Urine 03/03/21 Range/Units 19:28 Urine Color Yellow Urine Appearance Turbid A (Clear) Urine pH 7.5 (4.5-7.5) Ur Specific [place] 1.012 (1.000-1.030) Urine Protein Negative (Negative) Urine Glucose (UA) Negative (Negative) Diagnostic Findings Abdomen/Pelvis CT 03/03/21 16:21 CT SCAN OF THE ABDOMEN AND PELVIS WITHOUT CONTRAST CLINICAL HISTORY: left flank pain COMPARISON STUDY: March 29, 2013 TECHNIQUE: CT scan of the abdomen and pelvis was performed from the lung bases to the proximal femurs. Images are reviewed in the axial, sagittal, and coronal planes. IV contrast was not administered for this examination. A dose lowering technique was utilized adhering to the principles of ALARA. CT DOSE: 878.17 mGy.cm FINDINGS: Lower chest: No acute abnormalities. Liver: The unenhanced liver is normal in size, contour, and attenuation. There is no intrahepatic biliary ductal dilatation. Gallbladder: Is surgically absent. Spleen: Is slightly prominent 13.8 cm in length. Pancreas: Fatty infiltration of pancreatic body and head as well as uncinate process appear more prominent since prior study in 2012. Adrenal glands: Unremarkable. Kidneys: The unenhanced kidneys are normal in size without hydronephrosis. There is no contour deforming renal mass lesion. Punctate nonobstructive nephrolithiasis is seen on the left. Right and left ureters are nondilated. Punctate calculus is seen within lower pelvic region, in close proximity to the anatomical region of the left ureter vesicular junction Bowel: The small bowel and colon are normal in course and caliber. Cecum is seen within lower pelvic region. Appendix shows normal morphology and gas filled. Focal area of fat stranding is seen within left lower quadrant (3/360) adjacent to the collapsed loop of descending colon. Peritoneum: There is no intraperitoneal free air or abdominal ascites. Vasculature: The abdominal aorta is normal in course and caliber. Adenopathy: None. Pelvic viscera: Urinary bladder is partially decompressed which limits evaluation. Possibly cystic appearance of the right adnexa which could represent physiologic follicle or cyst. Skeletal structures: Minimal degenerative changes of the spine. IMPRESSION: 1. Questionable area of fat stranding is seen within left lower quadrant, adjacent to the loop of nondilated bowel, differential diagnosis could include epiploic appendigitis or diverticulitis, however no definite large diverticuli are seen. Follow-up evaluation is per clinical protocol. 2. Normal appendix. Nondilated loops of bowel. 3. Nonobstructive nephrolithiasis on the left. 4. Cystic appearance of the right adnexa, could represent physiologic follicle or cyst. Please correlate above-mentioned findings with [employer] history. 5. Status post cholecystectomy. 6. The rest of findings as above. ACT 112: Negative or not required by law. The above report was generated using voice recognition software. It may contain grammatical, syntax or spelling errors. Electronically signed by: Courtney Arshad DO 03/03/2021 4:56 PM Abdomen/Pelvis CT 03/03/21 19:[address] WITH IV CONTRAST CT DOSE: 899.37 mGy.cm HISTORY: Acute left lower quadrant abdominal pain persistently worsening LLQ pain despite mtlp meds TECHNIQUE: Multiaxial CT images of the abdomen and pelvis were performed following the IV administration of 97 cc of Optiray, A dose lowering technique was utilized adhering to the principles of ALARA. COMPARISON STUDY: CT abdomen and pelvis of same day at 4:42 PM FINDINGS: Imaged inferior cardiac chambers are unremarkable. Clear lung bases. No pneumatosis or pneumoperitoneum. Mild splenic leak, 14.3 cm. Unremarkable pancreas, adrenal glands and liver. Cholecystectomy. Symmetric enhancement of the kidneys. There are a few bilateral renal cysts measuring up to 1.8 cm on the right. No hydronephrosis. Partially decompressed urinary bladder. Aorta and IVC are unremarkable. There is no adenopathy. Tiny hiatal hernia. No bowel obstruction. There is acute epiploic appendagitis within the abdominal left lower quadrant on image 356 series 3 involving the distal aspect of the descending colon which was also described on comparison. Fluid-filled cecum with air and fluid-filled noninflamed appendix measuring up to 7 mm. Unremarkable soft tissues. There is no acute fracture. IMPRESSION: 1. Acute epiploic appendagitis involves the distal aspect of the descending colon. 2. No bowel obstruction or bowel wall thickening. 3. Air and fluid-filled noninflamed appearing mildly dilated appendix measures up to 7 mm. Acute appendicitis is considered unlikely. 4. Cholecystectomy. 5. Mild hepatomegaly. ACT 112: Negative or not required by law. The above report was generated using voice recognition software. It may contain grammatical, syntax or spelling errors. Electronically signed by: Mariano Kelsey M.D. 03/03/2021 7:56 PM Supervising Physician Co-Signing Physician Notes IM ATTENDING : Patient seen and examined. History obtained from patient and records. Preceding documentation by Ms. Nati Leslie PA-C reviewed. FINAL ASSESSMENT AND PLAN as follows : Intractable abdominal pain Epiploic appendagitis on CT hx gastroparesis, IBS as per records Patient nontoxic Mood disorder, stable Migraine, controlled Past tobacco abuse OBS GMF Analgesia preferably NSAIDs Surgery consult Re: Abnormal CT (epiploic appendagitis, dilated appendix on report) (Patient already seen by provider at the ER.) DVT prophylaxis. Lovenox subcu Full code Text document was generated using [employer] recognition software. It may contain grammatical or spelling errors. Kindly contact undersigned for clarification of any documentation item in question.
[2021-03-03] MEDS ORDERED: LORazepam 0.5 MG/1 ML VIAL IV PRN (22:03)
[2021-03-03] MEDS ORDERED: PROMETHAZINE HCL 12.5 MG in SODIUM CHLORIDE 0.9% 50 ML IV PRN (22:03)
[2021-03-03] MEDS ORDERED: IBUPROFEN 200 MG TAB PO PRN (22:03)
[2021-03-03] MEDS: KETOROLAC TROMETHAMINE 15 MG/ML VIAL IV PRN (23:03)
[2021-03-03] MEDS ORDERED: ACETAMINOPHEN 325 MG TAB PO PRN (23:22)
[2021-03-03] MEDS ORDERED: CETIRIZINE HCL 10 MG TABLET PO PRN (23:22)
[2021-03-03] MEDS ORDERED: LACTATED RINGER'S 1,000 ML IV ONE (23:45)
[2021-03-03] MEDS ORDERED: [UNRECOGNIZED DRUG - REMARK] PRN (23:45)
[2021-03-03] MEDS ORDERED: KETOROLAC TROMETHAMINE 15 MG/ML VIAL IV ONE (23:46)
[2021-03-04] MEDS ORDERED: PNEUMOCOCCAL POLYSACCHARIDES 25 MCG/0.5 ML VIAL/SYR IM ONE (00:10)
[2021-03-04] MEDS: lamoTRIgine 100 MG TAB PO SCH ×3 (00:31→19:38)
[2021-03-04] MEDS: TOPIRAMATE 100 MG TAB PO SCH ×2 (00:32→19:39)
[2021-03-04 06:03] LABS: Basophils # (auto) 0.03 K/uL (0-0.2); Basophils % (auto) 0.4 %; Eosinophils # (auto) 0.12 K/uL (0-0.5); Eosinophils % (auto) 1.6 %; Hematocrit (blood only) 36.1 % (37-47); Hemoglobin 11.3 g/dL (12.0-16.0); Immature Granulocytes # (auto) 0.02 K/uL (0.00-0.02); Immature Granulocytes % (auto) 0.3 %; Lymphocytes # (auto) 1.92 K/uL (1.2-3.4); Lymphocytes % (auto) 26.1 %; Mean Corpuscular Hemoglobin 27.5 pg (25-34); Mean Corpuscular Hgb Conc 31.3 g/dL (32-36); Mean Corpuscular Volume 87.8 fL (80-100); Mean Platelet Volume 9.8 fL (7.4-10.4); Monocytes # (auto) 0.61 K/uL (0.11-0.59); Monocytes % (auto) 8.3 %; Neutrophils # (auto) 4.65 K/uL (1.4-6.5); Neutrophils % (auto) 63.3 %; Platelet Count 331 K/uL (130-400); RDW Coefficient of Variation 15.5 % (11.5-14.5); RDW Standard Deviation 49.6 fL (36.4-46.3); Red Blood Count 4.11 M/uL (4.2-5.4); White Blood Count 7.35 K/uL (4.8-10.8)
[2021-03-04 06:31] LABS: BUN Creatinine Ratio 8.6 (10-20); Calcium 8.4 mg/dl (8.5-10.1); Creatinine Clr Calc Pharmacy 119.4 ml/min; Est GFR (African American) 106.1 ml/min; Est GFR (Non-African American) 91.6 ml/min; Potassium 3.8 mmol/L (3.5-5.1)
[2021-03-04] MEDS ORDERED: IBUPROFEN 200 MG TAB PO PRN (07:03)
[2021-03-04] MEDS: KETOROLAC TROMETHAMINE 15 MG/ML VIAL IV PRN (08:07)
[2021-03-04] MEDS: ENOXAPARIN INJ 40 MG/0.4 ML SYR SQ SCH (08:13)
[2021-03-04] MEDS: FLUoxetine HCL 10 MG CAP PO SCH (08:13)
--- NOTE | 2021-03-04 08:32 | Surgery Progress Note ---
Date of Service March 04, 2021 Assessment & Plan (1) Epiploic appendagitis: Plan: Since Toradol is not helping we will administer some morphine to see if we can keep her comfortable She would like to go home but obviously I explained to her she cannot if she is having so much discomfort until we get the pain under control Encouraging that her white count is back to normal Discussed with her that the process is not going to go away within 24 hours if she is comfortable with oral analgesics she can be discharged Admission and Anticipated Discharge Date Admission Date: March 03, 2021 Subjective Since last evening the patient states that despite in getting some Toradol she still has moderate amount of discomfort in the left lower quadrant Physical Exam Physical Exam: Is alert coherent appears comfortable laying in bed left lower quadrant exam by palpation appears to be less tender than appeared last evening Results & Data ([facility]) Vital Signs (Past 12 Hours) Vital Signs Temp Pulse Pulse Resp BP BP Pulse Ox 03/04/21 07:47 36.7 C 67 16 112/76 97 03/03/21 23:15 36.8 C 63 18 122/82 98 03/03/21 21:30 66 14 139/80 98 03/03/21 21:00 66 16 124/81 97 03/03/21 20:30 80 14 141/84 H 98 PG Care Time/CCT Total # of Minutes Spent Total Time Spent with Patient: Total time spent is greater than 50% in coordination of care (as documented) at patient's floor/unit and/or counseling patient: Coding Level of Care Code 27564 Subseq Hosp Care Lvl 2 Diagnoses Epiploic appendagitis K63.89
[2021-03-04] MEDS ORDERED: MoRPHine SULFATE 2 MG/ML CARP IV STA (08:33)
[2021-03-04] MEDS: MoRPHine SULFATE 4 MG/ML 1 ML CARP\\VIAL IV PRN ×2 (08:48→15:49)
[2021-03-04] MEDS ORDERED: FLUoxetine HCL 20 MG CAP PO SCH (09:00)
--- NOTE | 2021-03-04 09:15 | Hospitalist Progress Note ---
Date of Service March 04, 2021 Assessment & Plan (1) Epiploic appendagitis: Plan: This is a 41yo F with PMH of migraine headaches, bipolar disorder, GERD and IBS who presents with abdominal pain. CT abd/pelvis: Acute epiploic appendagitis involves the distal aspect of the descending colon. Patient did have mild leukocytosis on admission at 12,000, but did not meet SIRS or sepsis criteria. Patient admitted to [facility] Continue IV antibiotics Continue IV fluids IV Toradol moderate pain, IV morphine severe pain Surgery on board -appreciate their input Will need better pain control prior to discharge Antiemetics encourage incentive spirometry Pt re evaluated @1415 - she is feeling much improved after scheduled ibuprofen and IV morphine. Discussed with surgery and okay to advance diet. If pain continues to remain controlled overnight will discharge in a.m. on scheduled ibuprofen Anemia H&H 11.3 and 36.1 Likely dilutional in setting of IV fluid (2) Bipolar disorder: Plan: mood stable continue prozac, lamictal (3) Headache, migraine: Plan: Continue Topamax. Receives monthly Emgality injections, zolmitriptan PRN DVT ppx: Lovenox, encourage ambulation Dispo: admitted to med/surg, likely d/c in next day or so when pain under better control FULL CODE PCP: Janet Diaz Pt was seen and examined in collaboration with Dr. Steen, please see addendum Please contact via [place] text with questions or concerns to Karmen Tenorio). Plan: I have seen and examined the patient and have discussed the case with the provider above. I agree with the assessment and plan as stated. The patient is reporting improvement in her overall pain with ibuprofen and morphine. She has not yet tried any food but is feeling hungry. No vomiting, no blood per rectum. Acute onset of symptoms just yesterday. Abdominal exam reveals a soft nondiste nded abdomen with significant left lower quadrant tenderness to palpation. Heart and lung exam is normal, patient is otherwise well-nourished well-developed with no neurologic deficits or other issues. Continue to monitor for improvement overnight on conservative therapy. Appreciate surgery following along clinical course. DO Enio Admission and Anticipated Discharge Date Admission Date: March 03, 2021 Subjective Patient was seen and examined in room 363-1. Follow-up epiploic appendagitis. She continues to complain of significant left lower quadrant pain. Currently pain is 6 out of 10. It is mildly improved from last evening, but waxes and wanes in severity. She also has associated nausea but no vomiting. She took Toradol this morning without significant improvement. She denies any fever, chills, sweats, lightheadedness, dizziness, chest pain, shortness of breath, cough, dysuria, increased urgency or frequency with urination. She is passing urine without difficulty. She has not passed flatus. She denies having similar symptoms in the past. 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 Review of Systems Review of Systems: All systems reviewed & are unremarkable except as noted in HPI & below Physical Exam Physical Exam: Gen: WD/WN, NAD, A&O x3 HEENT: Normocephalic, atraumatic, conjunctivae moist, sclerae anicteric, mucous membranes moist. Lung: Clear to Auscultation bilaterally, no wheezes/rales/rhonchi Heart: Regular rate, regular rhythm, no murmurs, rubs, or gallops Abdomen: Soft, tender to palpation in left lower quadrant, guarding, positive rebound, no rigidity, ND +BS x 4 Extremities: No edema Skin: Warm, no rash, negative turgor. Results & Data Results & Data ([facility]) Vital Signs (Past 12 Hours) Vital Signs Temp Pulse Pulse Resp BP BP Pulse Ox 03/04/21 07:47 36.7 C 67 16 112/76 97 03/03/21 23:15 36.8 C 63 18 122/82 98 03/03/21 21:30 66 14 139/80 98 Laboratory Results Short CBC 03/03/21 03/04/21 Range/Units 17:30 05:40 WBC 12.21 H 7.35 (4.8-10.8) K/uL Hgb 12.9 11.3 L (12.0-16.0) g/dL Hct 39.5 36.1 L (37-47) % Plt Count 419 H 331 (130-400) K/uL BMP 03/03/21 03/04/21 17:20 05:40 Sodium 140 141 Potassium 3.9 3.8 Chloride 111 H 113 H Carbon Dioxide 24 25 BUN 6 L 7 Creatinine 0.86 0.80 Glucose 81 81 Calcium 9.1 8.4 L Liver Function 03/03/21 Range/Units 17:20 Total Bilirubin 0.3 (0.2-1) mg/dl Direct Bilirubin < 0.1 (0-0.2) mg/dl AST 9 L (15-37) U/L ALT 15 (12-78) U/L Alkaline Phosphatase 102 (45-117) U/L Albumin 3.5 (3.4-5.0) gm/dl Urine 03/03/21 Range/Units 19:28 Urine Color Yellow Urine Appearance Turbid A (Clear) Urine pH 7.5 (4.5-7.5) Ur Specific Regina 1.012 (1.000-1.030) Urine Protein Negative (Negative) Urine Glucose (UA) Negative (Negative) Diagnostic Findings Abdomen/Pelvis CT 03/03/21 16:21 CT SCAN OF THE ABDOMEN AND PELVIS WITHOUT CONTRAST CLINICAL HISTORY: left flank pain COMPARISON STUDY: March 29, 2013 TECHNIQUE: CT scan of the abdomen and pelvis was performed from the lung bases to the proximal femurs. Images are reviewed in the axial, sagittal, and coronal planes. IV contrast was not administered for this examination. A dose lowering technique was utilized adhering to the principles of ALARA. CT DOSE: 878.17 mGy.cm FINDINGS: Lower chest: No acute abnormalities. Liver: The unenhanced liver is normal in size, contour, and attenuation. There is no intrahepatic biliary ductal dilatation. Gallbladder: Is surgically absent. Spleen: Is slightly prominent 13.8 cm in length. Pancreas: Fatty infiltration of pancreatic body and head as well as uncinate process appear more prominent since prior study in 2012. Adrenal glands: Unremarkable. Kidneys: The unenhanced kidneys are normal in size without hydronephrosis. There is no contour deforming renal mass lesion. Punctate nonobstructive nephrolithiasis is seen on the left. Right and left ureters are nondilated. Punctate calculus is seen within lower pelvic region, in close proximity to the anatomical region of the left ureter vesicular junction Bowel: The small bowel and colon are normal in course and caliber. Cecum is seen within lower pelvic region. Appendix shows normal morphology and gas filled. Focal area of fat stranding is seen within left lower quadrant (3/360) adjacent to the collapsed loop of descending colon. Peritoneum: There is no intraperitoneal free air or abdominal ascites. Vasculature: The abdominal aorta is normal in course and caliber. Adenopathy: None. Pelvic viscera: Urinary bladder is partially decompressed which limits e valuation. Possibly cystic appearance of the right adnexa which could represent physiologic follicle or cyst. Skeletal structures: Minimal degenerative changes of the spine. IMPRESSION: 1. Questionable area of fat stranding is seen within left lower quadrant, adjacent to the loop of nondilated bowel, differential diagnosis could include epiploic appendigitis or diverticulitis, however no definite large diverticuli are seen. Follow-up evaluation is per clinical protocol. 2. Normal appendix. Nondilated loops of bowel. 3. Nonobstructive nephrolithiasis on the left. 4. Cystic appearance of the right adnexa, could represent physiologic follicle or cyst. 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 5. Status post cholecystectomy. 6. The rest of findings as above. ACT 112: Negative or not required by law. The above report was generated using voice recognition software. It may contain grammatical, syntax or spelling errors. Electronically signed by: Courtney Arshad DO 03/03/2021 4:56 PM Abdomen/Pelvis CT 03/03/21 19:[address] WITH IV CONTRAST CT DOSE: 899.37 mGy.cm HISTORY: Acute left lower quadrant abdominal pain persistently worsening LLQ pain despite mtlp meds TECHNIQUE: Multiaxial CT images of the abdomen and pelvis were performed following the IV administration of 97 cc of Optiray, A dose lowering technique was utilized adhering to the principles of ALARA. COMPARISON STUDY: CT abdomen and pelvis of same day at 4:42 PM FINDINGS: Imaged inferior cardiac chambers are unremarkable. Clear lung bases. No pneumatosis or pneumoperitoneum. Mild splenic leak, 14.3 cm. Unremarkable pancreas, adrenal glands and liver. Cholecystectomy. Symmetric enhancement of the kidneys. There are a few bilateral renal cysts measuring up to 1.8 cm on the right. No hydronephrosis. Partially decompressed urinary bladder. Aorta and IVC are unremarkable. There is no adenopathy. Tiny hiatal hernia. No bowel obstruction. There is acute epiploic appendagitis within the abdominal left lower quadrant on image 356 series 3 involving the distal aspect of the descending colon which was also described on comparison. Fluid-filled cecum with air and fluid-filled noninflamed appendix measuring up to 7 mm. Unremarkable soft tissues. There is no acute fracture. IMPRESSION: 1. Acute epiploic appendagitis involves the distal aspect of the descending colon. 2. No bowel obstruction or bowel wall thickening. 3. Air and fluid-filled noninflamed appearing mildly dilated appendix measures up to 7 mm. Acute appendicitis is considered unlikely. 4. Cholecystectomy. 5. Mild hepatomegaly. ACT 112: Negative or not required by law. The above report was generated using voice recognition software. It may contain grammatical, syntax or spelling errors. Electronically signed by: Mariano Kelsey M.D. 03/03/2021 7:56 PM Medications Administered Medication List Enoxaparin Sodium (Enoxaparin Inj 40 Mg/0.4 Ml Syr) 40 mg SQ QAM SAMIA Stop: 04/03/21 08:59 Last Admin: 03/04/21 08:13 Dose: 40 mg Documented by: [id number] Fluoxetine HCl (Fluoxetine Hcl 10 Mg Cap) 30 mg PO DAILY SAMIA Stop: 04/03/21 08:59 Last Admin: 03/04/21 08:13 Dose: 30 mg Documented by: [id number] Lactated Ringer's (Lr) 1,000 mls @ 80 mls/hr IV .[id number] ONE Stop: 03/04/21 12:14 Last Admin: 03/03/21 23:54 Dose: 80 mls/hr Documented by: [id number] Cefoxitin Sodium 1,000 mg/ (Dextrose) 60 mls @ 120 mls/hr IV Q8H [facility]; Protocol Stop: 03/14/21 00:00 Last Infusion: 03/04/21 08:43 Dose: 0 mls/hr Documented by: [id number] Admin: 03/04/21 08:12 Dose: 120 mls/hr Documented by: [id number] Infusion: 03/04/21 01:36 Dose: 0 mls/hr Documented by: [id number] Admin: 03/04/21 00:32 Dose: 120 mls/hr Documented by: [id number] Lamotrigine (Lamotrigine 100 Mg Tab) 200 mg PO BID SAMIA Stop: 04/02/21 23:44 Last Admin: 03/04/21 08:13 Dose: 200 mg Documented by: [id number] Admin: 03/04/21 00:31 Dose: 200 mg Documented by: [id number] Miscellaneous (* Control*Order Awaiting Action) 1 ea N/A QS SAMIA Stop: 04/03/21 00:00 Last Admin: 03/04/21 08:09 Dose: Not Given Documented by: [id number] Admin: 03/04/21 00:37 Dose: Not Given Documented by: [id number] Morphine Sulfate (Morphine Sulfate 4 Mg/Ml 1 Ml Carp\Vial) 3 mg IV Q3H PRN PRN Reason: Pain Stop: 03/18/21 08:36 Last Admin: 03/04/21 08:48 Dose: 3 mg Documented by: [id number] Topiramate (Topiramate 100 Mg Tab) 200 mg PO HS SAMIA Stop: 04/02/21 23:44 Last Admin: 03/04/21 00:32 Dose: 200 mg Documented by: [id number] Discontinued Medications Hydromorphone HCl (Hydromorphone Inj 1 Mg/Ml Syringe) 1 mg IV NOW STA Stop: 03/03/21 19:15 Last Admin: 03/03/21 19:25 Dose: 1 mg Documented by: [id number] Hydromorphone HCl (Hydromorphone Inj 1 Mg/Ml Syringe) 1 mg IV NOW STA Stop: 03/03/21 20:07 Last Admin: 03/03/21 20:21 Dose: 1 mg Documented by: [id number] Sodium Chloride (Nss 1000ml) 1,000 mls @ 999 mls/hr IV .Q1H1M ONE Stop: 03/03/21 17:21 Last Infusion: 03/03/21 18:23 Dose: 0 mls/hr Documented by: [id number] Admin: 03/03/21 17:26 Dose: 999 mls/hr Documented by: [id number] Cefoxitin Sodium (Mefoxin) 2,000 mg in 60 mls @ 100 mls/hr IV NOW STA Stop: 03/03/21 19:29 Last Infusion: 03/03/21 20:21 Dose: 0 mls/hr Documented by: [id number] Admin: 03/03/21 19:41 Dose: 100 mls/hr Documented by: [id number] Ioversol (Optiray 320 100ml) 97 ml IV ONCE ONE Stop: 03/03/21 19:35 Last Admin: 03/03/21 19:35 Dose: 97 ml Documented by: [id number] Ketorolac Tromethamine (Ketorolac 30 Mg/Ml Vial) 30 mg IV NOW STA Stop: 03/03/21 16:22 Last Admin: 03/03/21 17:26 Dose: 30 mg Documented by: [id number] Ketorolac Tromethamine (Ketorolac Tromethamine 15 Mg/Ml Vial) 15 mg IV Q6H PRN PRN Reason: Pain Stop: 03/08/21 22:02 Last Admin: 03/04/21 08:07 Dose: 15 mg Documented by: [id number] Admin: 03/03/21 23:03 Dose: 15 mg Documented by: [id number] Ketorolac Tromethamine (Ketorolac Tromethamine 15 Mg/Ml Vial) 15 mg IV NOW ONE Stop: 03/03/21 23:47 Last Admin: 03/04/21 00:32 Dose: 15 mg Documented by: [id number] Morphine Sulfate (Morphine Sulfate 10 Mg/Ml Carp/Vial) 8 mg IV NOW STA Stop: 03/03/21 17:58 Last Admin: 03/03/21 18:43 Dose: 8 mg Documented by: [id number] Ondansetron HCl (Ondansetron Inj 2 Mg/Ml 2 Ml Vial) 4 mg IV NOW STA Stop: 03/03/21 16:22 Last Admin: 03/03/21 17:26 Dose: 4 mg Documented by: [id number] Ondansetron HCl (Ondansetron Inj 2 Mg/Ml 2 Ml Vial) 4 mg IV NOW STA Stop: 03/03/21 17:58 Last Admin: 03/03/21 18:48 Dose: 4 mg Documented by: [id number]
[2021-03-04] MEDS: IBUPROFEN 600 MG TAB PO SCH ×2 (12:10→19:32)
[2021-03-05] MEDS: IBUPROFEN 600 MG TAB PO SCH ×3 (03:36→20:38)
[2021-03-05] MEDS: MoRPHine SULFATE 4 MG/ML 1 ML CARP\\VIAL IV PRN (03:36)
[2021-03-05 08:15] LABS: Basophils # (auto) 0.02 K/uL (0-0.2); Basophils % (auto) 0.3 %; Eosinophils % (auto) 1.4 %; Hematocrit (blood only) 38.6 % (37-47); Hemoglobin 12.1 g/dL (12.0-16.0); Immature Granulocytes # (auto) 0.01 K/uL (0.00-0.02); Immature Granulocytes % (auto) 0.1 %; Lymphocytes # (auto) 1.58 K/uL (1.2-3.4); Lymphocytes % (auto) 21.7 %; Mean Corpuscular Hemoglobin 27.6 pg (25-34); Mean Corpuscular Hgb Conc 31.3 g/dL (32-36); Mean Corpuscular Volume 88.1 fL (80-100); Mean Platelet Volume 10.3 fL (7.4-10.4); Monocytes # (auto) 0.41 K/uL (0.11-0.59); Monocytes % (auto) 5.6 %; Neutrophils # (auto) 5.17 K/uL (1.4-6.5); Neutrophils % (auto) 70.9 %; Platelet Count 381 K/uL (130-400); RDW Coefficient of Variation 15.5 % (11.5-14.5); Red Blood Count 4.38 M/uL (4.2-5.4); White Blood Count 7.29 K/uL (4.8-10.8)
[2021-03-05] MEDS: lamoTRIgine 100 MG TAB PO SCH ×2 (08:33→20:38)
[2021-03-05] MEDS: FLUoxetine HCL 10 MG CAP PO SCH (08:33)
[2021-03-05] MEDS: ENOXAPARIN INJ 40 MG/0.4 ML SYR SQ SCH (08:34)
[2021-03-05 08:48] LABS: Albumin Level 3.2 gm/dl (3.4-5.0); BUN Creatinine Ratio 8.5 (10-20); Calcium 9.3 mg/dl (8.5-10.1); Creatinine Clr Calc Pharmacy 129.1 ml/min; Est GFR (African American) 116.6 ml/min; Est GFR (Non-African American) 100.6 ml/min; Potassium 3.7 mmol/L (3.5-5.1)
[2021-03-05 08:51] LABS: Albumin Globulin Ratio 0.9 (0.9-2); Bilirubin,Total 0.2 mg/dl (0.2-1); Globulin 3.7 gm/dl (2.5-4.0); Total Protein 6.9 gm/dl (6.4-8.2)
--- NOTE | 2021-03-05 13:24 | Hospitalist Progress Note ---
Date of Service March 05, 2021 Assessment & Plan (1) Epiploic appendagitis: Plan: This is a 41yo F with PMH of migraine headaches, bipolar disorder, GERD and IBS who presents with abdominal pain. CT abd/pelvis: Acute epiploic appendagitis involves the distal aspect of the descending colon. Patient did have mild leukocytosis on admission at 12,000, but did not meet SIRS or sepsis criteria. WBC now in normal range. Patient admitted to [facility] No evidence of infection - antibiotics were discontinued Advanced to normal diet, tolerating without issue Transitioning to PO pain regimen with scheduled ibuprofen, PRN Tramadol Evaluated by surgery - discussed that pain likely to not go away acutely - okay to discharge once patient is comfortable with oral analgesics Encourage incentive spirometry, ambulating PRN Miralax for bowel regimen Anemia H&H 11.3 and 36.1 Likely dilutional in setting of IV fluid --> hgb wnl of 12 today (2) Bipolar disorder: Plan: Stable. Continue prozac, lamictal (3) Headache, migraine: Plan: Continue Topamax. Receives monthly Emgality injections, zolmitriptan PRN DVT ppx: Lovenox, encourage ambulation Dispo: admitted to med/surg, likely d/c tomorrow once pain is better controlled FULL CODE PCP: JOHNATHAN Diaz Patient was seen and examined in collaboration with Dr. Steen, please see addendum. Admission and Anticipated Discharge Date Admission Date: March 04, 2021 Supervising Physician Co-Signing Physician Notes I have seen and examined the patient and have discussed the case with the provider above. I agree with the assessment and plan as stated. She reports some bloating and constipation present with a h/o diarrhea-predominant IBS in the past. She is feeling better and has been up and ambulating and tolerating PO. Agree with stopping antibiotics given no WBC count or fever and overall clinical improvement. She has improved LLQ pain to palpation with an otherwise benign abdomen. Agree with plan for conservative management and likely DC home in am. DO Enio Subjective Seen and examined in 363-1. Abdominal pain improved currently although woke with pain around 0300 that improved with IV morphine. Has not moved bowels in past few days but is passing flatus. No fever, chills, lightheadedness, headache, CP, SOB, nausea, vomiting, dysuria or diarrhea. Review of Systems Review of Systems: At least ten systems reviewed and negative except as noted in the HPI. Physical Exam Physical Exam: General Appearance: WD/WN, vitals as above, NAD, sitting up in bed, pleasant, conversing easily Head: normocephalic, atraumatic Eyes: normal inspection, PERRL, conjunctivae normal, anicteric sclerae ENT: external ear and nose normal, oropharynx normal Neck: normal visual inspection, trachea midline, no thyromegaly Respiratory: normal respiratory effort, lungs clear to auscultation, no wheeze, rales, rhonchi. No accessory muscle use Cardiovascular: regular rate, rhythm, no murmur, normal peripheral pulses, no BLE edema. Vessels: no JVD Chest: normal inspection of chest Abdomen/GI: normal bowel sounds, soft, LLQ TTP, no hepatosplenomegaly Extremities/Musculoskeletal: no cyanosis or clubbing, extremities motor strength 5/5 Neurologic: PERRL, EOMI, accommodation nl, no face palsy, no dysarthria, CN's II-XI intact bilaterally and moves all extremities Psychiatric: A+Ox3, euthymic affect Skin: no rashes, normal color, warm/dry Results & Data Results & Data ([facility]) Vital Signs (Past 12 Hours) Vital Signs Temp Pulse Resp BP Pulse Ox 03/05/21 07:14 36.8 C 63 17 121/82 99 Laboratory Results Short CBC 03/05/21 Range/Units 07:17 WBC 7.29 (4.8-10.8) K/uL Hgb 12.1 (12.0-16.0) g/dL Hct 38.6 (37-47) % Plt Count 381 (130-400) K/uL BMP 03/05/21 07:17 Sodium 140 Potassium 3.7 Chloride 111 H Carbon Dioxide 22 BUN 6 L Creatinine 0.74 Glucose 83 Calcium 9.3 Liver Function 03/05/21 Range/Units 07:17 Total Bilirubin 0.2 (0.2-1) mg/dl AST 11 L (15-37) U/L ALT 13 (12-78) U/L Alkaline Phosphatase 99 (45-117) U/L Albumin 3.2 L (3.4-5.0) gm/dl Diagnostic Findings Abdomen/Pelvis CT 09/14/21 16:21 CT SCAN OF THE ABDOMEN AND PELVIS WITHOUT CONTRAST CLINICAL HISTORY: left flank pain COMPARISON STUDY: March 29, 2013 TECHNIQUE: CT scan of the abdomen and pelvis was performed from the lung bases to the proximal femurs. Images are reviewed in the axial, sagittal, and coronal planes. IV contrast was not administered for this examination. A dose lowering technique was utilized adhering to the principles of ALARA. CT DOSE: 878.17 mGy.cm FINDINGS: Lower chest: No acute abnormalities. Liver: The unenhanced liver is normal in size, contour, and attenuation. There is no intrahepatic biliary ductal dilatation. Gallbladder: Is surgically absent. Spleen: Is slightly prominent 13.8 cm in length. Pancreas: Fatty infiltration of pancreatic body and head as well as uncinate process appear more prominent since prior study in 2012. Adrenal glands: Unremarkable. Kidneys: The unenhanced kidneys are normal in size without hydronephrosis. There is no contour deforming renal mass lesion. Punctate nonobstructive nephrolithiasis is seen on the left. Right and left ureters are nondilated. Punctate calculus is seen within lower pelvic region, in close proximity to the anatomical region of the left ureter vesicular junction Bowel: The small bowel and colon are normal in course and caliber. Cecum is seen within lower pelvic region. Appendix shows normal morphology and gas filled. Focal area of fat stranding is seen within left lower quadrant (3/360) adjacent to the collapsed loop of descending colon. Peritoneum: There is no intraperitoneal free air or abdominal ascites. Vasculature: The abdominal aorta is normal in course and caliber. Adenopathy: None. Pelvic viscera: Urinary bladder is partially decompressed which limits evaluation. Possibly cystic appearance of the right adnexa which could represent physiologic follicle or cyst. Skeletal structures: Minimal degenerative changes of the spine. IMPRESSION: 1. Questionable area of fat stranding is seen within left lower quadrant, adjacent to the loop of nondilated bowel, differential diagnosis could include epiploic appendigitis or diverticulitis, however no definite large diverticuli are seen. Follow-up evaluation is per clinical protocol. 2. Normal appendix. Nondilated loops of bowel. 3. Nonobstructive nephrolithiasis on the left. 4. Cystic appearance of the right adnexa, could represent physiologic follicle or cyst. 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 5. Status post cholecystectomy. 6. The rest of findings as above. ACT 112: Negative or not required by law. The above report was generated using voice recognition software. It may contain grammatical, syntax or spelling errors. Electronically signed by: Courtney Arshad DO 03/03/2021 4:56 PM Abdomen/Pelvis CT 03/03/21 19:[address] WITH IV CONTRAST CT DOSE: 899.37 mGy.cm HISTORY: Acute left lower quadrant abdominal pain persistently worsening LLQ pain despite mtlp meds TECHNIQUE: Multiaxial CT images of the abdomen and pelvis were performed following the IV administration of 97 cc of Optiray, A dose lowering technique was utilized adhering to the principles of ALARA. COMPARISON STUDY: CT abdomen and pelvis of same day at 4:42 PM FINDINGS: Imaged inferior cardiac chambers are unremarkable. Clear lung bases. No pneumatosis or pneumoperitoneum. Mild splenic leak, 14.3 cm. Unremarkable pancreas, adrenal glands and liver. Cholecystectomy. Symmetric enhancement of the kidneys. There are a few bilateral renal cysts measuring up to 1.8 cm on the right. No hydronephrosis. Partially decompressed urinary bladder. Aorta and IVC are unremarkable. There is no adenopathy. Tiny hiatal hernia. No bowel obstruction. There is acute epiploic appendagitis within the abdominal left lower quadrant on image 356 series 3 involving the distal aspect of the descending colon which was also described on comparison. Fluid-filled cecum with air and fluid-filled noninflamed appendix measuring up to 7 mm. Unremarkable soft tissues. There is no acute fracture. IMPRESSION: 1. Acute epiploic appendagitis involves the distal aspect of the descending colon. 2. No bowel obstruction or bowel wall thickening. 3. Air and fluid-filled noninflamed appearing mildly dilated appendix measures up to 7 mm. Acute appendicitis is considered unlikely. 4. Cholecystectomy. 5. Mild hepatomegaly. ACT 112: Negative or not required by law. The above report was generated using voice recognition software. It may contain grammatical, syntax or spelling errors. Electronically signed by: Mariano Kelsey M.D. 03/03/2021 7:56 PM
[2021-03-05] MEDS ORDERED: POLYETHYLENE (MIRALAX) 17 GM PACK PO PRN (13:26)
[2021-03-05] MEDS: ACETAMINOPHEN 500 MG TAB PO SCH ×2 (14:57→22:34)
[2021-03-05] MEDS ORDERED: traMADol HCL 50 MG TABLET PO PRN (14:58)
[2021-03-05] MEDS: TOPIRAMATE 100 MG TAB PO SCH (20:39)
[2021-03-06] MEDS: IBUPROFEN 600 MG TAB PO SCH ×2 (04:19→11:45)
[2021-03-06] MEDS: ACETAMINOPHEN 500 MG TAB PO SCH (06:11)
[2021-03-06 07:08] LABS: Hematocrit (blood only) 38.8 % (37-47); Hemoglobin 12.3 g/dL (12.0-16.0); Mean Corpuscular Hemoglobin 27.8 pg (25-34); Mean Corpuscular Hgb Conc 31.7 g/dL (32-36); Mean Corpuscular Volume 87.6 fL (80-100); Mean Platelet Volume 9.9 fL (7.4-10.4); Platelet Count 367 K/uL (130-400); RDW Coefficient of Variation 15.3 % (11.5-14.5); Red Blood Count 4.43 M/uL (4.2-5.4); White Blood Count 7.75 K/uL (4.8-10.8)
[2021-03-06 07:25] LABS: BUN Creatinine Ratio 11.3 (10-20); Calcium 8.8 mg/dl (8.5-10.1); Creatinine Clr Calc Pharmacy 116.5 ml/min; Est GFR (Non-African American) 88.9 ml/min; Potassium 4.1 mmol/L (3.5-5.1)
--- NOTE | 2021-03-06 07:49 | Surgery Progress Note ---
Date of Service March 06, 2021 Assessment & Plan (1) Epiploic appendagitis: Plan: 03/06/21 I last spoke with GI service on that time I felt that patient was comfortable enough to go home but apparently she stayed on I did see the patient last evening where she was resting comfortably still had some discomfort but not significant I followed up with the patient this morning where she is laying comfortably in bed with minimal abdominal discomfort and looking forward to going home I reiterated to her that this process is not going to resolve immediately maintain analgesics continue with bowel function No need to follow-up with our office unless new issues arise No need to send the patient home on antibiotics just on analgesics white counts normal Since Toradol is not helping we will administer some morphine to see if we can keep her comfortable She would like to go home but obviously I explained to her she cannot if she is having so much discomfort until we get the pain under control Encouraging that her white count is back to normal Discussed with her that the process is not going to go away within 24 hours if she is comfortable with oral analgesics she can be discharged Admission and Anticipated Discharge Date Admission Date: March 04, 2021 Subjective She continues to do well pain is much better controlled looking forward to going home Physical Exam Physical Exam: Laying comfortably in bed with no complaints Results & Data ([facility]) Vital Signs (Past 12 Hours) Vital Signs Temp Pulse Resp BP Pulse Ox 03/06/21 07:02 36.7 C 67 18 122/82 99 03/05/21 22:30 36.7 C 68 16 125/84 98 PG Care Time/CCT Total # of Minutes Spent Total Time Spent with Patient: Total time spent is greater than 50% in coordination of care (as documented) at patient's floor/unit and/or counseling patient: Coding Level of Care Code 14455 Subseq Hosp Care Lvl 3 Diagnoses Epiploic appendagitis K63.89
[2021-03-06] MEDS: lamoTRIgine 100 MG TAB PO SCH (08:44)
[2021-03-06] MEDS: ENOXAPARIN INJ 40 MG/0.4 ML SYR SQ SCH (08:44)
[2021-03-06] MEDS: FLUoxetine HCL 10 MG CAP PO SCH (08:44)
--- NOTE | 2021-03-06 10:52 | Discharge Summary ---
Date of Service March 06, 2021 Admission HPI Per Admitting Provider This is a 41yo F with PMH of migraine headaches, bipolar disorder, GERD and IBS who presents with abdominal pain she first noticed upon waking this morning. Pain is in her left lower quadrant and she describes it as constant and throbbing. Pain is exacerbated with movement. Endorses associated nausea but no vomiting. Poor appetite today but able to tolerate fluids. Denies fever, chills, lightheadedness, headache, chest pain, shortness of breath, dysuria or diarrhea. Ongoing issues with constipation due to IBS and also felt to be side effect of some new medications. Surgical history includes cholecystectomy, hernia repair. Admission Exam Per Admitting Provider General Appearance: vitals as above, NAD, sitting up in bed, appears uncomfortable 2/2 pain, conversing without issue Head: normocephalic, atraumatic Eyes: normal inspection, PERRL, conjunctivae normal, anicteric sclerae ENT: external ear and nose normal, oropharynx normal Neck: normal visual inspection, trachea midline, no thyromegaly Respiratory: normal respiratory effort, lungs clear to auscultation, no wheeze, rales, rhonchi. No accessory muscle use Cardiovascular: regular rate, rhythm, no murmur, normal peripheral pulses, no BLE edema. Vessels: no JVD Chest: normal inspection of chest Abdomen/GI: normal bowel sounds, soft, no tenderness to palpation, no guarding, no hepatosplenomegaly Extremities/Musculoskeletal: no cyanosis or clubbing, extremities motor strength 5/5 Neurologic: PERRL, EOMI, accommodation nl, no face palsy, no dysarthria, CN's II-XI intact bilaterally and moves all extremities Psychiatric: A+Ox3, euthymic affect Skin: no rashes, normal color, warm/dry Principal Diagnosis Acute Epiploic appendagitis Discharge Exam General Appearance: WD/WN, vitals as above, NAD, sitting up in bed, pleasant, conversing easily Head: normocephalic, atraumatic Eyes: normal inspection, PERRL, conjunctivae normal, anicteric sclerae ENT: external ear and nose normal, oropharynx normal Neck: normal visual inspection, trachea midline, no thyromegaly Respiratory: normal respiratory effort, lungs clear to auscultation, no wheeze, rales, rhonchi. No accessory muscle use Cardiovascular: regular rate, rhythm, no murmur, normal peripheral pulses, no BLE edema. Vessels: no JVD Chest: normal inspection of chest Abdomen/GI: normal bowel sounds, soft, LLQ TTP, no hepatosplenomegaly Extremities/Musculoskeletal: no cyanosis or clubbing, extremities motor strength 5/5 Neurologic: PERRL, EOMI, accommodation nl, no face palsy, no dysarthria, CN's II-XI intact bilaterally and moves all extremities Psychiatric: A+Ox3, euthymic affect Skin: no rashes, normal color, warm/dry Discharge Data Allergies Allergy/AdvReac Type Severity Reaction Status Date / Time Sulfa (Sulfonamide Allergy Unknown Hives/Rash Verified 03/03/21 15:53 Antibiotics) Consultations 03/03/21 20:06 ED Decision to Admit Stat 03/03/21 20:27 Consult General Surgery Routine Ordered Studies Laboratory Results WBC 7.75 K/uL (4.8-10.8) 03/06/21 06:56 RBC 4.43 M/uL (4.2-5.4) 03/06/21 06:56 Hgb 12.3 g/dL (12.0-16.0) 03/06/21 06:56 Hct 38.8 % (37-47) 03/06/21 06:56 MCV 87.6 fL (80-100) 03/06/21 06:56 MCH 27.8 pg (25-34) 03/06/21 06:56 MCHC 31.7 g/dL (32-36) L 03/06/21 06:56 RDW Std Deviation 49.0 fL (36.4-46.3) H 03/06/21 06:56 RDW Coeff of Daniel 15.3 % (11.5-14.5) H 03/06/21 06:56 Plt Count 367 K/uL (130-400) 03/06/21 06:56 MPV 9.9 fL (7.4-10.4) 03/06/21 06:56 Immature Gran % (Auto) 0.1 % 03/05/21 07:17 Neut % (Auto) 70.9 % 03/05/21 07:17 Lymph % (Auto) 21.7 % 03/05/21 07:17 [place] % (Auto) 5.6 % 03/05/21 07:17 Eos % (Auto) 1.4 % 03/05/21 07:17 Baso % (Auto) 0.3 % 03/05/21 07:17 Neut # (Auto) 5.17 K/uL (1.4-6.5) 03/05/21 07:17 Lymph # (Auto) 1.58 K/uL (1.2-3.4) 03/05/21 07:17 [place] # (Auto) 0.41 K/uL (0.11-0.59) 03/05/21 07:17 Eos # (Auto) 0.10 K/uL (0-0.5) 03/05/21 07:17 Baso # (Auto) 0.02 K/uL (0-0.2) 03/05/21 07:17 Immature Gran # (Auto) 0.01 K/uL (0.00-0.02) 03/05/21 07:17 Sodium 141 mmol/L (136-145) 03/06/21 06:56 Potassium 4.1 mmol/L (3.5-5.1) 03/06/21 06:56 Chloride 114 mmol/L (98-107) H 03/06/21 06:56 Carbon Dioxide 23 mmol/L (21-32) 03/06/21 06:56 Anion Gap 4.0 (3-11) 03/06/21 06:56 BUN 9 mg/dl (7-18) 03/06/21 06:56 Creatinine 0.82 mg/dl (0.6-1.2) 03/06/21 06:56 Est Cr Clr Drug Dosing 116.5 ml/min 03/06/21 06:56 Est GFR ( Amer) 103.0 ml/min 03/06/21 06:56 Est GFR (Non-Af Amer) 88.9 ml/min 03/06/21 06:56 BUN/Creatinine Ratio 11.3 (10-20) 03/06/21 06:56 Glucose 105 mg/dl (70-99) H 03/06/21 06:56 Calcium 8.8 mg/dl (8.5-10.1) 03/06/21 06:56 Total Bilirubin 0.2 mg/dl (0.2-1) 03/05/21 07:17 Direct Bilirubin < 0.1 mg/dl (0-0.2) 03/03/21 17:20 AST 11 U/L (15-37) L 03/05/21 07:17 ALT 13 U/L (12-78) 03/05/21 07:17 Alkaline Phosphatase 99 U/L (45-117) 03/05/21 07:17 Total Protein 6.9 gm/dl (6.4-8.2) 03/05/21 07:17 Albumin 3.2 gm/dl (3.4-5.0) L 03/05/21 07:17 Globulin 3.7 gm/dl (2.5-4.0) 03/05/21 07:17 Albumin/Globulin Ratio 0.9 (0.9-2) 03/05/21 07:17 Lipase 103 U/L (73-393) 03/03/21 17:20 Urine Color Yellow 03/03/21 19:28 Urine Appearance Turbid (Clear) A 03/03/21 19:28 Urine pH 7.5 (4.5-7.5) 03/03/21 19:28 Ur Specific [place] 1.012 (1.000-1.030) 03/03/21 19:28 Urine Protein Negative (Negative) 03/03/21 19:28 Urine Glucose (UA) Negative (Negative) 03/03/21 19:28 Urine Ketones Negative (Negative) 03/03/21 19:28 Urine Blood Negative (Negative) 03/03/21 19:28 Urine Nitrite Negative (Negative) 03/03/21 19:28 Urine Bilirubin Negative (Negative) 03/03/21 19:28 Urine Urobilinogen Negative (Negative) 03/03/21 19:28 Ur Leukocyte Esterase 1+ (Negative) H 03/03/21 19:28 Urine WBC (Auto) 5-10 /hpf (0-5) H 03/03/21 19:28 Urine RBC (Auto) 0-4 /hpf (0-4) 03/03/21 19:28 U Hyaline Cast (Auto) 1-5 /lpf (0-5) 03/03/21 19:28 U Epithel Cells (Auto) >30 /lpf (0-5) H 03/03/21 19:28 Urine Bacteria (Auto) Negative (Negative) 03/03/21 19:28 Amorphous Sediment Present (None Prsent) A 03/03/21 19:28 Urine Mucus Present (None Prsent) A 03/03/21 19:28 Urine Test Negative (Negative) 03/03/21 19:28 COVID-19 Eval Order Covid19 at [facility] 03/03/21 20:14 SARS-CoV-2 (PCR) NEGATIVE (Negative) 03/03/21 20:14 Impressions Abdomen/Pelvis CT 03/03/21 19:[address] WITH IV CONTRAST CT DOSE: 899.37 mGy.cm HISTORY: Acute left lower quadrant abdominal pain persistently worsening LLQ pain despite mtlp meds TECHNIQUE: Multiaxial CT images of the abdomen and pelvis were performed following the IV administration of 97 cc of Optiray, A dose lowering technique was utilized adhering to the principles of ALARA. COMPARISON STUDY: CT abdomen and pelvis of same day at 4:42 PM FINDINGS: Imaged inferior cardiac chambers are unremarkable. Clear lung bases. No pneumatosis or pneumoperitoneum. Mild splenic leak, 14.3 cm. Unremarkable pancreas, adrenal glands and liver. Cholecystectomy. Symmetric enhancement of the kidneys. There are a few bilateral renal cysts measuring up to 1.8 cm on the right. No hydronephrosis. Partially decompressed urinary bladder. Aorta and IVC are unremarkable. There is no adenopathy. Tiny hiatal hernia. No bowel obstruction. There is acute epiploic appendagitis within the abdominal left lower quadrant on image 356 series 3 involving the distal aspect of the descending colon which was also described on comparison. Fluid-filled cecum with air and fluid-filled noninflamed appendix measuring up to 7 mm. Unremarkable soft tissues. There is no acute fracture. IMPRESSION: 1. Acute epiploic appendagitis involves the distal aspect of the descending colon. 2. No bowel obstruction or bowel wall thickening. 3. Air and fluid-filled noninflamed appearing mildly dilated appendix measures up to 7 mm. Acute appendicitis is considered unlikely. 4. Cholecystectomy. 5. Mild hepatomegaly. ACT 112: Negative or not required by law. The above report was generated using voice recognition software. It may contain grammatical, syntax or spelling errors. Electronically signed by: Mariano Kelsey M.D. 03/03/2021 7:56 PM Hospital Course (1) Epiploic appendagitis: (2) Bipolar disorder: (3) Headache, migraine: This is a 41yo F with PMH of migraine headaches, bipolar disorder, GERD and IBS who presents with abdominal pain. CT abd/pelvis revealed acute epiploic appendagitis involves the distal aspect of the descending colon. Patient did have mild leukocytosis on admission at 12,000, but did not meet SIRS or sepsis criteria. Was treated with antibiotics empirically that were discontinued with no evidence of infection. Was evaluated by general surgery who felt pain could be managed on oral analgesics. No indication for surgery at this time. Diet was advanced to regular food, which she is tolerating without issue. Will be discharged with instruction to alternate tylenol and ibuprofen for pain control with Tramadol prescribed as needed for breakthrough pain. Patient comfortable with this regimen as it is adequately controlling pain. She was afebrile and hemodynamically stable at time of discharge. Total Time Total Time Spent Total Time Spent (In Minutes): 35 Discharge Plan Discharge Items Patient Disposition: Home - Self-Care Reason For Visit: ABD PAIN Discharge Diagnosis: Acute Epiploic appendagitis Condition on Discharge: Good Activity: Resume your previous activity Lifting: Gradually increase as tolerated Bathing: No limitations Driving/Machine Use: No limitations Weightbearing: Full weightbearing Non-emergency contact: Primary Care Provider Call non-emergency contact if: you have any medication questions, your symptoms worsen, your pain is not controlled, your pain is worsening, your pain is unusual for you, you have a fever and your temperature is above 101 Follow-up/Referrals: Filipe Wilkins MD, FACS [Surgeon] - (Patient will call Dr. Wilkins's office to schedule f/u as needed. ) Janet Diaz CRNP [Primary Care Provider] - 03/11/21 11:00 am (Date & Time 03/11/2021 11:00 AM Provider JOHNATHAN Chavez Department [facility] ) Diet: Regular Diet Comment: Advance diet as tolerated Addtl Attending Provider Instructions: MEDICATION CHANGES: Encourage ibuprofen 600mg every 8 hours as needed for pain and alternate with Tylenol 1,000mg every 8 hours as needed for pain. Prescribed Tramadol 50mg every 4 hours as needed for pain. Continue your current medication regimen. SUMMARY OF TEST RESULTS: You were admitted to [facility] for Abdominal Pain. CAT Scan revealed you have epiploic appendagitis, which is inflammation that occurs on fat filled tissues on the outside of your colon. This is not an infection and main treatment is conservative including rest, fluids, and pain management. PENDING TEST RESULTS: None RECOMMENDATIONS FOR FOLLOW-UP: Encourage ibuprofen 600mg every 8 hours as needed for pain and alternate with Tylenol 1,000mg every 8 hours as needed for pain. Prescribed Tramadol 50mg every 4 hours as needed for breakthrough pain. Please avoid driving or operating machinery while taking Tramadol since it is a type of opiate. Please follow up with your PCP on 03/11/2021 @ 11:00 I encourage you to stay well hydrated and drink water. If your abdominal pain becomes more severe, you develop fever, nausea or vomiting please return to ED immediately. OTHER INSTRUCTIONS: Seek medical attention if you have: * temperature above 101 * chest pain or trouble breathing * abdominal pain, nausea, vomiting * diarrhea, dark stools or bloody stools * any unanswered questions or concerns Call 911 if symptoms are severe. Please take good care of yourself. It has been a pleasure taking care of you. Please take care of yourself. If you have any questions regarding your recent hospitalization please contact [facility] and request kim Hospitalist @ [phone]. Nati Leslie PA-C Pending Studies at Discharge: No Stand-Alone Forms: My [facility], Opioid Pain Management, Work/School Release, Smoking Cessation Medications and DC Order Prescriptions: New tramadol [Ultram] 50 mg tablet 50 mg PO Q4H PRN (Reason: pain) Qty: 8 RF: 0 Continued desogestrel-ethinyl estradiol [Apri] 0.15-0.03 mg tablet 1 tab PO DAILY RF: 0 lamotrigine 200 mg tablet 200 mg PO BID RF: 0 cetirizine 10 mg tablet 10 mg PO HS PRN (Reason: Allergy Symptoms) RF: 0 topiramate 200 mg tablet 200 mg PO HS RF: 0 Emgality Pen 120 mg/mL pen injector 120 mg SUBCUT MONTHLY RF: 0 fluoxetine 10 mg capsule 10 mg PO DAILY RF: 0 fluoxetine 20 mg capsule 20 mg PO DAILY RF: 0 zolmitriptan 5 mg tablet 5 mg PO UD MDD 2 tabs PRN (Reason: Migraine Headache) RF: 0 Discharge Orders: Discharge Order (Routine); Ordered 03/06/21 Ordered By: Nati Loving/Other Patient Handouts: Anatomy of the Digestive System, How the Colon Works, Understanding Colitis Admission Data Admit Date/Time: 03/04/21 11:29 Attending Provider: Gwen Steen Admit Provider: Luis Enrique Bazzi Primary Care Provider: Janet Diaz Other Providers: Luis Enrique Bazzi ; Filipe Wilkins ; Karmen Miles ; Nati Leslie Other Interventions: Discharge Summary Assessment (RN) Last Done: 03/06/21 10:51 Supervising Physician Co-Signing Physician Notes I have seen and examined the patient and have discussed the case with the provider above. I agree with the assessment and plan as stated. Shikha is feeling improved today and feeling ready to go home. Her pain is still present but managed well on oral medications. No indication for antibiotics at this time. Abdomen is benign with resolved LLQ pain. Otherwise normal physical exam ans stable vitals. She is stable for discharge to home. DO Enio
== END 2021-03-06 13:44 | disposition home or self-care (01) | DRG 395 ==
LOC: 3W 14:53 → ED 14:53 → OBSVTOIN 22:00 → INTOOBSV 22:00 → 3W 23:11

== ENCOUNTER 2025-03-19 15:03 | Observation (INO) ==
--- NOTE | 2025-03-19 15:30 | Emergency Department Note ---
Impression & Plan Renal calculi, Nausea and vomiting, Intractable pain ED Provider Note NAME: TANYA TENORIO AGE: 45 SEX: F : 1980 ARRIVES VIA: Walk-In INFORMANT: Patient ED PROVIDER(S): Nehemias Steward DO CHIEF COMPLAINT: Right flank pain HPI: Patient is a 45-year-old female with a past medical history of bipolar disorder, IBS, GERD and epiploic appendagitis who presents to the ER for right flank pain. She notes this started yesterday morning around 1 AM. Associated with nausea and vomiting. She was seen at an outside facility had CT done which showed a 4 mm right-sided stone. She has been taking Flomax, oxycodone and Zofran. Pain and vomiting were persistent today and pain meds were not helping consequently she came in. ADDITIONAL HISTORY OBTAINED: Per HPI Chronic Medical/Social Conditions Affecting Care: Per HPI PAST MEDICAL HISTORY:See Below PAST SURGICAL HISTORY:See Below FAMILY HISTORY:See Below SOCIAL HISTORY:See Below HOME MEDICATIONS:See Below ALLERGIES:See Below VITALS:See Below PHYSICAL EXAMINATION: GENERAL: Sitting up in bed, alert, moderate distress holding right flank EYE EXAM: normal conjunctiva. OROPHARYNX: no exudate, no erythema, lips, buccal mucosa, and tongue normal and mucous membranes are moist NECK: supple, no nuchal rigidity, no adenopathy, non-tender LUNGS: Clear to auscultation. Normal chest wall mechanics HEART: no murmurs, S1 normal and S2 normal ABDOMEN: abdomen soft, non-tender, normo-active bowel sounds, no masses, no rebound or guarding. SKIN: no rashes and no bruising UPPER EXTREMITIES: upper extremities are grossly normal. LOWER EXTREMITIES: No pitting edema. NEURO EXAM: Normal sensorium, cranial nerves II-XII grossly intact, normal speech, no gross weakness of arms, no gross weakness of legs. MEDICAL DECISION MAKING: Patient is a 45-year-old female who presents ER for right flank pain associated with nausea and vomiting. She was seen and evaluated yesterday per her report and had a CT done which showed a 4 mm ureteral. She has been taking the narcotics at home in combination with Flomax and Zofran but still has vomiting and severe pain consequently came in. IV was established and blood work was obtained. All labs showed no significant leukocytosis or anemia. BMP with LFTs, bilirubin, and lipase was unremarkable. hCG was negative. UA showed no white cells to suggest infection but did have nitrites positive and leuks and consequently to cover prophylactically with Rocephin. She was given IV Toradol and Motrin doses of morphine. Updated bedside and discussed the case with the hospitalist for further evaluation management treatment. Ultrasound and KUB were not definitively showing the stone. Records were requested from [facility] but still pending. Consults/Care Managements Discussions: Per [facility] Triage Nursing notes reviewed. Limited review of prior medical records performed Vital Signs: reviewed and remarkable for no significant abnormalities Differential diagnosis: Differential diagnoses includes but is not limited to gastritis, peptic ulcer disease, GERD, gallbladder disease, pancreatitis, small bowel obstruction, appendicitis, diverticulitis, hernia, urinary tract infection, torsion, /ectopic (if female), perforation, trauma, infectious. ER treatment provided: See below Diagnostics interpreted by me include EKG and cardiac monitoring as listed below: -Cardiac Monitoring: An order was placed for continuous cardiac monitoring. The monitor shows a rate of 80 with sinus rhythm. -ECG: None -Laboratory studies:Interpreted by me as stated above in MDM and shown below. Imaging studies: Xrays: As interpreted by me: KUB shows no obvious obstruction Ultrasound shows no acute pathology CTs show: none Procedures:none Critical Care: None Past Med/Surg History Problem List (Updated 03/19/25 @ 19:17 by Nehemias Steward DO) Nausea and vomiting (Acute) Intractable pain (Acute) Renal calculi (Acute) Medical History (Updated 03/19/25 @ 19:17 by Nehemias Steward DO) HTN (hypertension) GERD (gastroesophageal reflux disease) IBS (irritable bowel syndrome) Bipolar disorder Headache, migraine Surgical History Hx of cholecystectomy Hx of hemorrhoidectomy Family History Other Diabetes Heart disease Hypertension Social History Smoking Status: Former smoker Second Hand Exposure: No; Do You Dip or Chew Tobacco: No; Hx Alcohol Use: No Hx Substance Use: No Preferred Language: Malaysian Communication Ability: Effective Contact Lens Blocker And Cutter Required: No Beliefs That Will Affect Care: None Current Living Situation: Alone Feels Safe at Home: Yes Assistive Devices: Glasses Allergies Allergies Allergy/AdvReac Type Severity Reaction Status Date / Time Sulfa (Sulfonamide Allergy Intermediate Hives/Rash Verified 03/19/25 16:47 Antibiotics) Home Meds Home Medications Medication Instructions Recorded Confirmed desogestrel 0.15 mg-ethinyl 1 tab PO DAILY 07/03/19 03/19/25 estradiol 0.03 mg tablet (Apri) lamotrigine 200 mg tablet 200 mg PO BID 07/03/19 03/19/25 fluoxetine 10 mg capsule 10 mg PO DAILY 03/03/21 03/19/25 galcanezumab-gnlm 120 mg/mL 120 mg subcut MONTHLY 03/03/21 03/19/25 subcutaneous pen injector (Emgality Pen) zolmitriptan 5 mg tablet 5 mg PO UD PRN Migraine Headache 03/03/21 03/19/25 levocetirizine 5 mg tablet (Xyzal) 5 mg PO HS 08/03/21 03/19/25 azelastine 137 mcg (0.1 %) nasal 1 spray intranasal BID 03/19/25 03/19/25 spray fluoxetine 40 mg capsule 40 mg PO QAM 03/19/25 03/19/25 fluticasone furoate 27.5 2 spray intranasal DAILY 03/19/25 03/19/25 mcg/actuation nasal spray,suspension (Flonase Sensimist) iron,carbonyl 65 mg-vitamin C 125 1 tab PO BID 03/19/25 03/19/25 mg tablet,delayed release (Vitron-C) lorazepam 0.5 mg tablet 0.5 mg PO DIRECTED PRN Anxiety 03/19/25 03/19/25 metoprolol succinate 25 mg 25 mg PO QAM 03/19/25 03/19/25 tablet,extended release 24 hr ondansetron 4 mg disintegrating 4 mg PO Q8H PRN NAUSEA/VOMITING 03/19/25 03/19/25 tablet tamsulosin 0.4 mg capsule 0.4 mg PO DAILY 03/19/25 03/19/25 tirzepatide (weight loss) 12.5 12.5 mg subcut WK 03/19/25 03/19/25 mg/0.5 mL subcutaneous pen injector (Zepbound) trazodone 100 mg tablet 100 mg PO HS 03/19/25 03/19/25 Results & Data (ED) Vital Signs Vital Signs - 24 hr 03/19/25 15:13 03/19/25 15:27 03/19/25 15:46 Temperature 37.1 C Temperature Source Oral Pulse Rate 79 74 89 Pulse Rate [Left Apical] Pulse Rate [Right Finger] Pulse Rhythm [Right Finger] Pulse Strength [Right Finger] Respiratory Rate 18 13 Respiratory Effort / Characteristics Non-Labored Spontaneous Respiratory Depth Normal Respiratory Pattern Regular Blood Pressure 127/77 Blood Pressure [Right Arm] Blood Pressure Mean 93 Blood Pressure Mean [Right Arm] Blood Pressure Position [Right Arm] Pulse Oximetry 98 97 Oxygen Delivery Method Room Air Room Air Sepsis Recent Fever Within 48 Hours No Sepsis New/Unexplained Change in Mental Status No Sepsis Action Taken by Nursing No Action Required 03/19/25 16:51 03/19/25 18:09 Temperature Temperature Source Pulse Rate Pulse Rate [Left Apical] 67 Pulse Rate [Right Finger] 69 Pulse Rhythm [Right Finger] Regular Pulse Strength [Right Finger] Normal Respiratory Rate 20 20 Respiratory Effort / Characteristics Non-Labored Spontaneous Spontaneous Labored Respiratory Depth Normal Normal Respiratory Pattern Regular Regular Blood Pressure Blood Pressure [Right Arm] 118/81 97/78 L Blood Pressure Mean Blood Pressure Mean [Right Arm] 93 84 Blood Pressure Position [Right Arm] Sitting Pulse Oximetry 98 99 Oxygen Delivery Method Room Air Room Air Sepsis Recent Fever Within 48 Hours Sepsis New/Unexplained Change in Mental Status Sepsis Action Taken by Nursing Laboratory Data 03/19/25 15:25 03/19/25 15:25 Lab Results 03/19/25 Range/Units 15:25 WBC 10.01 (4.8-10.8) K/ul RBC 4.54 (4.20-5.40) M/uL Hgb 12.5 (12.0-16.0) g/dl Hct 39.1 (37.0-47.0) % MCV 86.1 (80.0-100.0) fL MCH 27.5 (25.0-34.0) pg MCHC 32.0 (32.0-36.0) g/dL RDW Std Deviation 47.0 H (36.4-46.3) fL RDW Coeff of Daniel 14.9 H (11.5-14.5) % Plt Count 431 H (130-400) K/uL MPV 9.9 (9.4-12.4) fL Immature Gran % (Auto) 0.3 % Neut % (Auto) 58.3 % Lymph % (Auto) 32.9 % [place] % (Auto) 5.7 % Eos % (Auto) 2.2 % Baso % (Auto) 0.6 % Neut # (Auto) 5.84 (1.40-6.50) K/uL Lymph # (Auto) 3.29 (1.20-3.40) K/uL [place] # (Auto) 0.57 (0.11-0.59) K/uL Eos # (Auto) 0.22 (0.00-0.50) K/uL Baso # (Auto) 0.06 (0.00-0.20) K/uL Immature Gran # (Auto) 0.03 (0.01-0.20) K/uL Sodium 137 (136-145) mmol/L Potassium 4.0 (3.5-5.1) mmol/L Chloride 107 (98-107) mmol/L Carbon Dioxide 23 (21-32) mmol/L Anion Gap 7 (3-11) BUN 15 (6-23) mg/dl Creatinine 0.71 (0.6-1.2) mg/dl Est Cr Clr Drug Dosing Not Reportable eGFR 106.79 BUN/Creatinine Ratio 21.1 H (10-20) Glucose 85 (70-99(Fasting)) mg/dl Calcium 9.0 (8.6-10.3) mg/dl Total Bilirubin 0.3 (0.2-1.0) mg/dl AST 12 L (13-39) U/L ALT 10 (7-52) U/L Alkaline Phosphatase 67 (34-104) U/L Total Protein 7.0 (6.0-8.3) gm/dl Albumin 4.1 (3.4-5.0) gm/dl Globulin 2.9 (2.5-4.0) gm/dl Albumin/Globulin Ratio 1.4 (0.9-2) Lipase 19 (11-82) U/L HCG, Qual Negative (Negative) Urine Color Dark Yellow Urine Appearance Clear (Clear) Urine pH 6.0 (4.5-7.5) Ur Specific [place] 1.019 (1.000-1.030) Urine Protein Negative (Negative) Urine Glucose (UA) Negative (Negative) Urine Ketones Negative (Negative) Urine Blood Negative (Negative) Urine Nitrite Positive A (Negative) Urine Bilirubin Negative (Negative) Urine Urobilinogen Negative (Negative) Ur Leukocyte Esterase Trace H (Negative) Urine WBC (Auto) 0-5 (0-5) /hpf Urine RBC (Auto) 3-5 H (0-2) /hpf U Hyaline Cast (Auto) 0-2 (0-2) /lpf U Epithel Cells (Auto) 3-5 H (0-2) /hpf Urine Bacteria (Auto) None Seen (None Seen) Urine Comment Administered Medications Sodium Chloride (Nss) 1,000 mls @ 125 mls/hr IV .Q8H SAMIA Stop: 03/22/25 17:14 Last Admin: 03/19/25 17:20 Dose: 125 mls/hr Documented By: BRITTANY Ketorolac Tromethamine (Ketorolac Tromethamine 15 Mg/Ml Vial) 15 mg IV Q6H SAMIA Stop: 03/20/25 17:29 Last Admin: 03/19/25 17:56 Dose: 15 mg Documented By: BRITATNY Oxycodone HCl (Oxycodone Hcl Ir 5 Mg Tab (Immediate Release)) 5 mg PO Q6H PRN PRN Reason: Mod-Sev Pain (Scale 4-10) Stop: 04/02/25 17:15 Last Admin: 03/19/25 18:34 Dose: 5 mg Documented By: KARLENE Discontinued Medications Sodium Chloride (Nss) 1,000 mls @ 999 mls/hr IV .Q1H1M ONE Stop: 03/19/25 16:26 Last Infusion: 03/19/25 16:34 Dose: Infused Documented By: Admin: 03/19/25 15:33 Dose: 999 mls/hr Documented By: bello Ceftriaxone Sodium (Rocephin) 2,000 mg in 50 mls @ 100 mls/hr IV NOW STA Stop: 03/19/25 17:30 Last Infusion: 03/19/25 17:50 Dose: Infused Documented By: Admin: 03/19/25 17:20 Dose: 100 mls/hr Documented By: BRITTANY Ketorolac Tromethamine (Ketorolac Tromethamine 15 Mg/Ml Vial) 15 mg IV NOW ONE Stop: 03/19/25 15:27 Last Admin: 03/19/25 15:35 Dose: 15 mg Documented By: bello Morphine Sulfate (Morphine Sulfate 4 Mg/Ml 1 Ml Carp\\Vial) 4 mg IV NOW STA Stop: 03/19/25 15:27 Last Admin: 03/19/25 15:36 Dose: 4 mg Documented By: bello Morphine Sulfate (Morphine Sulfate 10 Mg/Ml Carp/Vial) 6 mg IV NOW STA Stop: 03/19/25 16:43 Last Admin: 03/19/25 16:47 Dose: 6 mg Documented By: DENISE Ondansetron HCl (Ondansetron Inj 2 Mg/Ml 2 Ml Vial) 4 mg IV NOW STA Stop: 03/19/25 15:55 Last Admin: 03/19/25 16:20 Dose: 4 mg Documented By: BRITTANY Imaging Data Radiologist's Impression: KUB X-Ray 03/19/25 15:26 Clinical history: Pain 2 views of the abdomen were obtained Findings: The bowel gas pattern appears unremarkable. No renal or ureteral calculi are seen. No foreign body is evident. There is mild scoliosis. Surgical clips are seen consistent with prior cholecystectomy Impression: Unremarkable abdominal radiographs Electronically signed by Eavn Knox 03-19-2025 4:29 PM Renal Ultrasound 03/19/25 15:26 Clinical history: Right-sided pain Technique: Renal sonography was performed Findings: The kidneys are of normal size and echogenicity. The right kidney measures 11.5 cm in length and the left kidney measures 13.3 cm in length. There is no hydronephrosis or visualized hydroureter. There are bilateral renal calculi, measuring up to 5 mm in size No definite bladder calculus or mass is identified. Ureteral jets were not seen. Impression: Small bilateral renal calculi Electronically signed by Evan Knox 03-19-2025 4:22 PM Discharge Plan Visit Data Chief Complaint: Flank Pain Stated Complaint: KIDNEY PAIN ED Provider: Nehemias Steward Discharge Problem: Renal calculi, Nausea and vomiting, Intractable pain Patient Disposition: Admitted As Inpatient Condition: Fair Forms Stand Alone Forms: [facility], Important Visit Information Prescriptions Prescriptions: No Action desogestrel-ethinyl estradiol [Apri] 0.15-0.03 mg tablet 1 tab PO DAILY lamotrigine 200 mg tablet 200 mg PO BID levocetirizine [Xyzal] 5 mg Tablet 5 mg PO HS Emgality Pen 120 mg/mL pen injector 120 mg SUBCUT MONTHLY Rx Instructions: PER PT "USUALLY THE FIRST OR TUE OF THE MONTH". fluoxetine 10 mg capsule 10 mg PO DAILY Rx Instructions: TOTAL DOSE 50 MG--TAKES WITH 40 MG CAP. zolmitriptan 5 mg tablet 5 mg PO UD MDD 2 tabs PRN (Reason: Migraine Headache) Rx Instructions: take 1 tablet at onset and may repeat in 2 hours if ineffective. no more than 2 tablets in 24 hours fluoxetine 40 mg capsule 40 mg PO QAM Rx Instructions: TOTAL DOSE 50 MG--TAKES WITH 10 MG CAP. lorazepam 0.5 mg Tablet 0.5 mg PO DIRECTED PRN (Reason: Anxiety) Rx Instructions: UNABLE TO VERIFY WITH EXT MED HX. trazodone 100 mg Tablet 100 mg PO HS metoprolol succinate 25 mg tablet extended release 24 hr 25 mg PO QAM azelastine 137 mcg (0.1 %) spray,non-aerosol 1 spray INTRANASAL BID ondansetron 4 mg tablet,disintegrating 4 mg PO Q8H PRN (Reason: NAUSEA/VOMITING) Flonase Sensimist 27.5 mcg/actuation [place],Suspension 2 spray INTRANASAL DAILY Rx Instructions: into each nostril Vitron-C 65 mg iron- 125 mg Tablet,Delayed Release (Dr/Ec) 1 tab PO BID Zepbound 12.5 mg/0.5 mL Pen Injector 12.5 mg SUBCUT WK Rx Instructions: SUNDAYS tamsulosin 0.4 mg capsule 0.4 mg PO DAILY Referrals Referrals: Janet Diaz CRNP [Primary Care Provider] - Discharge Problem: Nausea and vomiting Qualifiers: Vomiting type: unspecified Qualified Code(s): R11.2 - Nausea with vomiting, unspecified
[2025-03-19] MEDS: SODIUM CHLORIDE 0.9% 1,000 ML IV ONE (15:33)
[2025-03-19] MEDS: KETOROLAC TROMETHAMINE 15 MG/ML VIAL IV ONE (15:35)
[2025-03-19] MEDS: MoRPHine SULFATE 4 MG/ML 1 ML CARP\\VIAL IV STA (15:36)
[2025-03-19 15:41] LABS: Hematocrit (blood only) 39.1 % (37.0-47.0); Hemoglobin 12.5 g/dl (12.0-16.0); Immature Granulocytes # (auto) 0.03 K/uL (0.01-0.20); Immature Granulocytes % (auto) 0.3 %; Mean Corpuscular Hemoglobin 27.5 pg (25.0-34.0); Mean Corpuscular Volume 86.1 fL (80.0-100.0); Platelet Count 431 K/uL (130-400); RDW Standard Deviation 47.0 fL (36.4-46.3); Red Blood Count 4.54 M/uL (4.20-5.40); White Blood Count 10.01 K/ul (4.8-10.8)
[2025-03-19 15:49] LABS: Appearance Urine Clear (Clear); Bacteria Urine Automated None Seen (None Seen); Cast Urine Automated 0-2 /lpf (0-2); Glucose Urine UA Negative (Negative); WBC Urine Automated 0-5 /hpf (0-5)
[2025-03-19 15:57] LABS: Alanine Aminotransferase 10 U/L (7-52); Albumin Globulin Ratio 1.4 (0.9-2); Albumin Level 4.1 gm/dl (3.4-5.0); Alkaline Phosphatase 67 U/L (34-104); Anion Gap 7 (3-11); Bilirubin,Total 0.3 mg/dl (0.2-1.0); Blood Urea Nitrogen 15 mg/dl (6-23); Calcium 9.0 mg/dl (8.6-10.3); Carbon Dioxide 23 mmol/L (21-32); Chloride 107 mmol/L (98-107); Globulin 2.9 gm/dl (2.5-4.0); Glucose 85 mg/dl (70-99(Fasting)); Lipase 19 U/L (11-82); Potassium 4.0 mmol/L (3.5-5.1); Sodium 137 mmol/L (136-145); Total Protein 7.0 gm/dl (6.0-8.3)
[2025-03-19] MEDS: ONDANSETRON INJ 2 MG/ML 2 ML VIAL IV STA (16:20)
--- NOTE | 2025-03-19 16:22 | Ultrasound Report ---
Clinical history: Right-sided pain Technique: Renal sonography was performed Findings: The kidneys are of normal size and echogenicity. The right kidney measures 11.5 cm in length and the left kidney measures 13.3 cm in length. There is no hydronephrosis or visualized hydroureter. There are bilateral renal calculi, measuring up to 5 mm in size No definite bladder calculus or mass is identified. Ureteral jets were not seen. Impression: Small bilateral renal calculi Electronically signed by Evan Knox 03-19-2025 4:22 PM
[2025-03-19 16:28] LABS: Pregnancy Test, Serum Negative (Negative)
--- NOTE | 2025-03-19 16:30 | XRay Report ---
Clinical history: Pain 2 views of the abdomen were obtained Findings: The bowel gas pattern appears unremarkable. No renal or ureteral calculi are seen. No foreign body is evident. There is mild scoliosis. Surgical clips are seen consistent with prior cholecystectomy Impression: Unremarkable abdominal radiographs Electronically signed by Evan Knox 03-19-2025 4:29 PM
[2025-03-19] MEDS: MoRPHine SULFATE 10 MG/ML CARP/VIAL IV STA (16:47)
--- NOTE | 2025-03-19 17:06 | History & Physical Report ---
Date of Service March 19, 2025 Assessment & Plan (1) Renal calculi: (2) Nausea and vomiting: (3) Intractable pain: Plan: This is a 45yo F with PMH of HTN, GERD, migraine headaches, bipolar 2 disorder, OCD and other medical problems listed [facility] who presents with persistent R flank pain x 2 days. Seen at ER yesterday and discharged home with Flomax, oxycodone and zofran Renal ultrasound with no hydronephrosis or visualized hydroureter. Bilateral re nal calculi, measuring up to 5mm in size Afebrile, no leukocytosis, UA nitrite positive and trace leuk esterase, reflex urine culture sent In ED, received Rocephin, Toradol x 1, a total of 10mg Morphine, 1L NSS ER working on records/CT from [facility]. If no improvement, repeat imaging and consider Urology eval Continue IV fluids, strain urine, Flomax Got IV ceftriaxone in ER x 1. Follow up urine culture Optimize pain control (4) HTN (hypertension): Plan: Normotensive, continue Toprol (5) Bipolar disorder: Plan: Continue fluoxetine, lamotrigine BID DVT Ppx: SCDs Code status: FULL PCP: Janet MANN Dispo: Observation med/surg Patient seen in collaboration with Dr. Lima. Please see addendum. I spent a total of 75 minutes coordinating, documenting, and providing care for this patient excluding time spent in the performance of separately billed services or time spent by another provider/QHP. History of Present Illness Chief Complaint: R sided flank pain Primary Care Provider: JOHNATHAN Watson This is a 45yo F with PMH of HTN, GERD, migraine headaches, bipolar 2 disorder, OCD and other medical problems listed [facility] who presents with persistent R flank pain x 2 days. R sided flank pain started overnight Tuesday and was seen at ER yesterday. Discharged home on oxycodone, Flomax and zofran but pain has persisted today, prompting presentation to [facility] ER. Endorsing constant burning pain in flank with associated nausea and vomiting x 2 today as well as increased urinary frequency and urgency. No hematuria. No F/C, lightheadedness, CP, SOB, dysuria, diarrhea or constipation. Allergies Allergy/AdvReac Type Severity Reaction Status Date / Time Sulfa (Sulfonamide Allergy Intermediate Hives/Rash Verified 03/19/25 16:47 Antibiotics) Home Medications Medication Instructions Recorded Confirmed Type desogestrel 0.15 mg-ethinyl 1 tab PO DAILY 07/03/19 03/19/25 History estradiol 0.03 mg tablet (Apri) lamotrigine 200 mg tablet 200 mg PO BID 07/03/19 03/19/25 History fluoxetine 10 mg capsule 10 mg PO DAILY 03/03/21 03/19/25 History galcanezumab-gnlm 120 mg/mL 120 mg subcut MONTHLY 03/03/21 03/19/25 History subcutaneous pen injector (Emgality Pen) zolmitriptan 5 mg tablet 5 mg PO UD PRN Migraine Headache 03/03/21 03/19/25 History levocetirizine 5 mg tablet (Xyzal) 5 mg PO HS 08/03/21 03/19/25 History azelastine 137 mcg (0.1 %) nasal 1 spray intranasal BID 03/19/25 03/19/25 History spray fluoxetine 40 mg capsule 40 mg PO QAM 03/19/25 03/19/25 History fluticasone furoate 27.5 2 spray intranasal DAILY 03/19/25 03/19/25 History mcg/actuation nasal spray,suspension (Flonase Sensimist) iron,carbonyl 65 mg-vitamin C 125 1 tab PO BID 03/19/25 03/19/25 History mg tablet,delayed release (Vitron-C) lorazepam 0.5 mg tablet 0.5 mg PO DIRECTED PRN Anxiety 03/19/25 03/19/25 History metoprolol succinate 25 mg 25 mg PO QAM 03/19/25 03/19/25 History tablet,extended release 24 hr ondansetron 4 mg disintegrating 4 mg PO Q8H PRN NAUSEA/VOMITING 03/19/25 03/19/25 History tablet tamsulosin 0.4 mg capsule 0.4 mg PO DAILY 03/19/25 03/19/25 History tirzepatide (weight loss) 12.5 12.5 mg subcut WK 03/19/25 03/19/25 History mg/0.5 mL subcutaneous pen injector (Zepbound) trazodone 100 mg tablet 100 mg PO HS 03/19/25 03/19/25 History Past Med/Surg History Problem List (Updated 03/19/25 @ 19:17 by Nehemias Steward DO) Nausea and vomiting (Acute) Intractable pain (Acute) Renal calculi (Acute) Medical History (Updated 03/19/25 @ 19:17 by Nehemias Steward DO) HTN (hypertension) GERD (gastroesophageal reflux disease) IBS (irritable bowel syndrome) Bipolar disorder Headache, migraine Surgical History Hx of cholecystectomy Hx of hemorrhoidectomy Family History Other Diabetes Heart disease Hypertension Social History Smoking Status: Former smoker Second Hand Exposure: No; Do You Dip or Chew Tobacco: No; Hx Alcohol Use: No Hx Substance Use: No Preferred Language: Micronesian Communication Ability: Effective Harp Regulator Required: No Beliefs That Will Affect Care: None Current Living Situation: Alone Feels Safe at Home: Yes Assistive Devices: Glasses Review of Systems Review of Systems: At least ten systems reviewed and negative except as noted in the HPI. Physical Exam Physical Exam: Please see Dr. Lima's addendum for physical exam. Results & Data Results & Data Vital Signs (Past 12 Hours) Vital Signs Temp Pulse Pulse Resp BP BP Pulse Ox 03/19/25 16:51 69 20 118/81 98 03/19/25 15:46 89 03/19/25 15:27 74 13 97 03/19/25 15:13 37.1 C 79 18 127/77 98 O2 Del Method 03/19/25 16:51 Room Air 03/19/25 15:46 03/19/25 15:27 Room Air 03/19/25 15:13 Room Air Laboratory Results Short CBC 03/19/25 Range/Units 15:25 WBC 10.01 (4.8-10.8) K/ul Hgb 12.5 (12.0-16.0) g/dl Hct 39.1 (37.0-47.0) % Plt Count 431 H (130-400) K/uL BMP 03/19/25 15:25 Sodium 137 Potassium 4.0 Chloride 107 Carbon Dioxide 23 BUN 15 Creatinine 0.71 Glucose 85 Calcium 9.0 Liver Function 09/30/25 Range/Units 15:25 Total Bilirubin 0.3 (0.2-1.0) mg/dl AST 12 L (13-39) U/L ALT 10 (7-52) U/L Alkaline Phosphatase 67 (34-104) U/L Albumin 4.1 (3.4-5.0) gm/dl Urine 03/19/25 Range/Units 15:25 Urine Color Dark Yellow Urine Appearance Clear (Clear) Urine pH 6.0 (4.5-7.5) Ur Specific [place] 1.019 (1.000-1.030) Urine Protein Negative (Negative) Urine Glucose (UA) Negative (Negative) Diagnostic Findings KUB X-Ray 03/19/25 15:26 Clinical history: Pain 2 views of the abdomen were obtained Findings: The bowel gas pattern appears unremarkable. No renal or ureteral calculi are seen. No foreign body is evident. There is mild scoliosis. Surgical clips are seen consistent with prior cholecystectomy Impression: Unremarkable abdominal radiographs Electronically signed by Evan Knox 03-19-2025 4:29 PM Renal Ultrasound 03/19/25 15:26 Clinical history: Right-sided pain Technique: Renal sonography was performed Findings: The kidneys are of normal size and echogenicity. The right kidney measures 11.5 cm in length and the left kidney measures 13.3 cm in length. There is no hydronephrosis or visualized hydroureter. There are bilateral renal calculi, measuring up to 5 mm in size No definite bladder calculus or mass is identified. Ureteral jets were not seen. Impression: Small bilateral renal calculi Electronically signed by Evan Knox 03-19-2025 4:22 PM Supervising Physician Co-Signing Physician Notes Presents with right flank pain that started around 1AM on Tuesday Constant, radiates to right lower abd, associated with nausea, vomiting, feeling of incomplete emptying Denied dysuria, fever, chills Was seen at [facility] ER, got CT abd and discharged on flomax, zofran and hydrocodone-acetaminophen Symptoms are not improving On exam, General: In painful distress Eyes: PERRL, conjunctivae normal, not pale, anicteric sclerae, EOM intact bilaterally ENMT: External ear and nose normal, oropharynx normal Respiratory: Normal respiratory effort, no respiratory distress, lungs clear to auscultation Cardiovascular: RRR S1 S2 Gastrointestinal (Abdomen): Abdomen is not distended, soft, +RLQ tenderness, normal bowel sounds Musculoskeletal: No pedal edema Genitourinary: +Right CVA tenderness Neurologic: Alert and oriented x 3, No focal weakness, sensation grossly intact Psychiatric: Euthymic affect Labs notable for Plt 431 UA noted +nitrite, trace leuk est but 0-5 WBC Renal USS noted small bilateral renal calculi, measuring up to 5mm. No hydronephrosis or visualized ureter Nephrolithiasis IVF Optimize pain control Antiemetics prn Get records/CT from [facility]. If no improvement, repeat imaging and consider Urology eval Continue flomax Got IV ceftriaxone in ER. Follow up urine culture Other plans as detailed by Nati Mercado PA-C
[2025-03-19] MEDS: cefTRIAXone SODIUM 2,000 MG/50 ML BAG IV STA (17:20)
[2025-03-19] MEDS: SODIUM CHLORIDE 0.9% 1,000 ML IV SCH (17:20)
[2025-03-19] MEDS: KETOROLAC TROMETHAMINE 15 MG/ML VIAL IV SCH (17:56)
[2025-03-19] MEDS ORDERED: POLYETHYLENE (MIRALAX) 17 GM PACK PO PRN (19:24)
[2025-03-19] MEDS ORDERED: CETIRIZINE HCL 10 MG TABLET PO PRN (19:39)
[2025-03-19] MEDS: ACETAMINOPHEN 500 MG TAB PO SCH (20:06)
[2025-03-19] MEDS: ONDANSETRON INJ 2 MG/ML 2 ML VIAL IV PRN (20:06)
[2025-03-19] MEDS: HYDROmorphone INJ 0.5 MG/0.5 ML SYR IV PRN (20:06)
[2025-03-19] MEDS: lamoTRIgine 100 MG TAB PO SCH (21:20)
[2025-03-19] MEDS: ASCORBIC ACID 500 MG TAB PO SCH (21:21)
[2025-03-19] MEDS: FERROUS SULFATE 325 MG TAB PO SCH (21:21)
[2025-03-19] MEDS ORDERED: INFLUENZA VACC TS2025-26(6m+)/PF (IIV3) 0.5mL Syr IM ONE (22:21)
[2025-03-20 08:25] LABS: Hematocrit (blood only) 34.3 % (37.0-47.0); Hemoglobin 11.3 g/dl (12.0-16.0); Mean Corpuscular Hemoglobin 29.0 pg (25.0-34.0); Mean Corpuscular Volume 87.9 fL (80.0-100.0); Platelet Count 339 K/uL (130-400); RDW Standard Deviation 47.9 fL (36.4-46.3); Red Blood Count 3.90 M/uL (4.20-5.40); White Blood Count 6.54 K/ul (4.8-10.8)
[2025-03-20] MEDS: METOPROLOL SUCC 25MG EXT REL TAB PO SCH (08:25)
[2025-03-20] MEDS: TAMSULOSIN HCL 0.4 MG CAP PO SCH (08:25)
[2025-03-20] MEDS: FLUTICASONE PROPIONATE NA SPR 16 GM BTL SCH (08:26)
[2025-03-20 08:49] LABS: Anion Gap 5.0 (3-11); Blood Urea Nitrogen 11.0 mg/dl (6-23); Calcium 8.0 mg/dl (8.6-10.3); Carbon Dioxide 25.0 mmol/L (21-32); Chloride 109.0 mmol/L (98-107); Creatinine Clr Calc Pharmacy 121.5 ml/min; Glucose 71.0 mg/dl (70-99(Fasting)); Potassium 3.8 mmol/L (3.5-5.1); Sodium 139.0 mmol/L (136-145)
--- NOTE | 2025-03-20 11:31 | Hospitalist Progress Note ---
Date of Service March 20, 2025 Assessment & Plan (1) Nausea and vomiting: (2) Renal calculi: Plan 45yo F with PMH of HTN, GERD, migraine headaches, bipolar 2 disorder, OCD and other medical problems listed belo who presents with persistent R flank pain x 2 days. b/l Renal calculi: Nausea and vomiting: Intractable pain: Possible right pyelonephritis Seen at ER 03/18 and discharged home with Flomax, oxycodone and zofran Renal ultrasound with no hydronephrosis or visualized hydroureter. Bilateral renal calculi, measuring up to 5mm in size Afebrile, no leukocytosis, UA nitrite positive and trace leuk esterase, reflex urine culture sent. CVA angle tender x rt at admission. In ED, received Rocephin, Toradol x 1, a total of 10mg Morphine, 1L NSS. c/w rocephin /. Pt reports improving rt flank pain. Continue IV fluids, strain urine, Flomax c/w rocephin, f/u w/ urine cx. Optimize pain control HTN (hypertension): Normotensive, continue Toprol Bipolar disorder: Continue fluoxetine, lamotrigine BID DVT Ppx: SCDs Code status: FULL PCP: Janet MANN Dispo: Observation med/surg Admission and Anticipated Discharge Date Admission Date: March 19, 2025 Subjective patient was seen and examined at bedside. Patient was lying in bed, on room air, NAD, resting comfortably. Patient reports pain getting better, reports eating okay and moving bowels okay. Physical Exam Physical Exam: GENERAL: Alert and oriented x3. NAD, on RA. HEENT: No pallor, no icterus. Pupils equal, round and reactive to light. Oral mucosa moist. NECK: No JVD, no neck masses. HEART: S1 and S2 heard. Regular rate and rhythm. No murmur, no gallop. RESPIRATORY SYSTEM: Normal AP diameter. No accessory muscle use. No wheezing, no crackles. ABDOMEN: Soft, bowel sounds present, nontender, no distention. CENTRAL NERVOUS SYSTEM: No facial droop. Speech is clear. Obeys simple commands. Moves extremities. EXTREMITIES: No edema, no erythema seen. Rt CVA ashley tender x mild. Results & Data Results & Data Vital Signs (Past 12 Hours) Vital Signs Temp Pulse Resp BP Pulse Ox O2 Del Method 03/20/25 08:12 37.2 C 79 18 119/83 97 Room Air (1) Nausea and vomiting Vomiting type: unspecified Qualified Code(s): R11.2 - Nausea with vomiting, unspecified
[2025-03-20] MEDS: cefTRIAXone SODIUM 2,000 MG/50 ML BAG IV SCH (15:27)
[2025-03-21 08:18] VITALS: BP 117/78; PULSE 78; RESP 20; TEMP 98.4; O2SAT 96
--- NOTE | 2025-03-21 08:57 | Discharge Summary ---
Date of Service March 21, 2025 Admission HPI Per Admitting Provider This is a 45yo F with PMH of HTN, GERD, migraine headaches, bipolar 2 disorder, OCD and other medical problems listed belo who presents with persistent R flank pain x 2 days. R sided flank pain started overnight Tuesday and was seen at ER yesterday. Discharged home on oxycodone, Flomax and zofran but pain has persisted today, prompting presentation to [facility] ER. Endorsing constant burning pain in flank with associated nausea and vomiting x 2 today as well as increased urinary frequency and urgency. No hematuria. No F/C, lightheadedness, CP, SOB, dysuria, diarrhea or constipation. Admission Exam Per Admitting Provider General: In painful distress Eyes: PERRL, conjunctivae normal, not pale, anicteric sclerae, EOM intact bilaterally ENMT: External ear and nose normal, oropharynx normal Respiratory: Normal respiratory effort, no respiratory distress, lungs clear to auscultation Cardiovascular: RRR S1 S2 Gastrointestinal (Abdomen): Abdomen is not distended, soft, +RLQ tenderness, normal bowel sounds Musculoskeletal: No pedal edema Genitourinary:+Right CVA tenderness Neurologic: Alert and oriented x 3, No focal weakness, sensation grossly intact Psychiatric: Euthymic affect Principal Diagnosis b/l Renal calculi: Nausea and vomiting: Intractable pain: Possible early right pyelonephritis Discharge Exam GENERAL: Alert and oriented x3. NAD, on RA. HEENT: No pallor, no icterus. Pupils equal, round and reactive to light. Oral mucosa moist. NECK: No JVD, no neck masses. HEART: S1 and S2 heard. Regular rate and rhythm. No murmur, no gallop. RESPIRATORY SYSTEM: Normal AP diameter. No accessory muscle use. No wheezing, no crackles. ABDOMEN: Soft, bowel sounds present, nontender, no distention. CENTRAL NERVOUS SYSTEM: No facial droop. Speech is clear. Obeys simple commands. Moves extremities. EXTREMITIES: No edema, no erythema seen. Rt CVA ashley tender x none today. Discharge Data Allergies Allergy/AdvReac Type Severity Reaction Status Date / Time Sulfa (Sulfonamide Allergy Intermediate Hives/Rash Verified 03/19/25 16:47 Antibiotics) Consultations 03/19/25 16:52 ED Decision to Admit Stat Ordered Studies 03/19/25 15:26 US Renal Bladder [US renal/blad retro comp] Stat Hospital Course (1) Nausea and vomiting: (2) Renal calculi: Plan 45yo F with PMH of HTN, GERD, migraine headaches, bipolar 2 disorder, OCD and other medical problems listed belo who presents with persistent R flank pain x 2 days. b/l Renal calculi: Nausea and vomiting: Intractable pain: Possible right pyelonephritis Seen at ER 03/18 and discharged home with Flomax, oxycodone and zofran Renal ultrasound with no hydronephrosis or visualized hydroureter. Bilateral renal calculi, measuring up to 5mm in size Afebrile, no leukocytosis, UA nitrite positive and trace leuk esterase, reflex urine culture sent. CVA angle tender x rt at admission. In ED, received Rocephin, Toradol x 1, a total of 10mg Morphine, 1L NSS. c/w rocephin 03/20. Pt reports No rt flank pain. Pt likely passed small tone 03/20, sent for analysis Pt advised to f/u on final results of stone analysis w/ pcp or urology office on dc, she voiced understanding. c/w iv atb today, to po atb on dc to complete 7 day course for possible early right pyelonephritis. Pain has been in control w/ no use of pain meds. HTN (hypertension): Normotensive, continue Toprol Bipolar disorder: Continue fluoxetine, lamotrigine BID DVT Ppx: SCDs Code status: FULL PCP: Janet MANN Dispo: Observation med/surg Patient is being discharged home with following instructions at the point of discharge: Follow-up with your primary care physician within a week time and likely you will need labs CBC/CMP/magnesium/phosphorus. You will be discharged on oral antibiotic to complete the course for complicated UTI. Follow-up with urology and your PCP upon discharge and follow-up on final results of your stone analysis and while you are inpatient. Take your medications as prescribed. Please make sure that you are able to get your medications today by calling your pharmacy before you leave the hospital so that your treatment continuity is not broken. Replaced By [facility] Attestation I certify that this patient is under my care and that I, or a physicians housekeeper and laundry assistant working with me, had a face to-face encounter that meets the [place] [facility] [id number] encounter requirements with this patient. The encounter with the patient was in whole, or in part, for the following medical condition, which is the primary reason for home health care (list medical condition): I certify that, based on my findings, the following services are medically necessary home health services: My clinical findings support the need for the above services because: Further, I certify that my clinical findings support that this patient is homebound (i.e. absences from home require considerable and taxing effort and are for medical reasons or caodaism services or infrequently or of short duration when for other reasons) because: Certification for Home Health Services: Based on the above findings, I certify that this patient is confined to the home and needs intermittent [facility] care, physical therapy and/or speech therapy or continues to need occupational therapy. The patient is under my care, and I have initiated the establishment of the plan of care. This patient will be followed by a physician who will periodically review the plan of care. Total Time Total Time Spent Total Time Spent (In Minutes): 45 Discharge Plan Discharge Items Patient Disposition: Home - Self-Care Reason For Visit: RENAL STONES Discharge Diagnosis: b/l Renal calculi: Nausea and vomiting: Intractable pain: Possible early right pyelonephritis Condition on Discharge: Fair Activity: Resume your previous activity Non-emergency contact: Primary Care Provider Call non-emergency contact if: you have any medication questions Follow-up/Referrals: Janet Diaz CRNP [Primary Care Provider] - (Date & Time 03/28/2025 3:00 PM Provider: Janet Diaz CRNP [facility]) Diet: Regular Addtl Attending Provider Instructions: Follow-up with your primary care physician within a week time and likely you will need labs CBC/CMP/magnesium/phosphorus. You will be discharged on oral antibiotic to complete the course for complicated UTI. Follow-up with urology and your PCP upon discharge and follow-up on final results of your stone analysis and while you are inpatient. Take your medications as prescribed. Please make sure that you are able to get your medications today by calling your pharmacy before you leave the hospital so that your treatment continuity is not broken. Pending Studies at Discharge: Yes Stand-Alone Forms: My [employer], Smoking Cessation Medications and DC Order Prescriptions: New cefdinir 300 mg capsule 300 mg PO BID 4 Days Qty: 8 0RF Continued desogestrel-ethinyl estradiol [Apri] 0.15-0.03 mg tablet 1 tab PO DAILY lamotrigine 200 mg tablet 200 mg PO BID levocetirizine [Xyzal] 5 mg Tablet 5 mg PO HS Emgality Pen 120 mg/mL pen injector 120 mg SUBCUT MONTHLY Rx Instructions: PER PT "USUALLY THE FIRST OR TUE OF THE MONTH". fluoxetine 10 mg capsule 10 mg PO DAILY Rx Instructions: TOTAL DOSE 50 MG--TAKES WITH 40 MG CAP. zolmitriptan 5 mg tablet 5 mg PO UD MDD 2 tabs PRN (Reason: Migraine Headache) Rx Instructions: take 1 tablet at onset and may repeat in 2 hours if ineffective. no more than 2 tablets in 24 hours fluoxetine 40 mg capsule 40 mg PO QAM Rx Instructions: TOTAL DOSE 50 MG--TAKES WITH 10 MG CAP. lorazepam 0.5 mg Tablet 0.5 mg PO DIRECTED PRN (Reason: Anxiety) Rx Instructions: UNABLE TO VERIFY WITH EXT MED HX. trazodone 100 mg Tablet 100 mg PO HS metoprolol succinate 25 mg tablet extended release 24 hr 25 mg PO QAM azelastine 137 mcg (0.1 %) spray,non-aerosol 1 spray INTRANASAL BID ondansetron 4 mg tablet,disintegrating 4 mg PO Q8H PRN (Reason: NAUSEA/VOMITING) Flonase Sensimist 27.5 mcg/actuation [place],Suspension 2 spray INTRANASAL DAILY Rx Instructions: into each nostril Vitron-C 65 mg iron- 125 mg Tablet,Delayed Release (Dr/Ec) 1 tab PO BID Zepbound 12.5 mg/0.5 mL Pen Injector 12.5 mg SUBCUT WK Rx Instructions: SUNDAYS tamsulosin 0.4 mg capsule 0.4 mg PO DAILY Discharge Orders: Discharge Order (Routine); Ordered 03/21/25 Ordered By: Kyung Yarbrough Admission Data Admit Date/Time: 03/19/25 17:14 Attending Provider: Kyung Yarbrough Admit Provider: Alysia Lima I. Primary Care Provider: Janet Diaz Other Providers: Alysia Lima I.
[2025-03-21] MEDS: cefTRIAXone SODIUM 2,000 MG/50 ML BAG IV SCH (12:42)
== END 2025-03-21 13:29 | disposition home or self-care (01) ==
LOC: ED 15:03 → EDINP 15:03 → SUATTDRO 17:14 → 3N 19:24